=== PATIENT | male | born 1945 | race Caucasian/White ===

== ENCOUNTER 2016-05-24 20:40 | Emergency (ER) | payer MEDICARE, BC ==
[2016-05-24] MEDS ORDERED: Aspirin 81 MG Tab.Chew PO ONE (20:45)
[2016-05-24 20:53] VITALS: BP 146/63
[2016-05-24] MEDS ORDERED: Sodium Chloride 0.9% 10 ML Syringe FLUSH PRN (20:59)
--- NOTE | 2016-05-24 21:18 | EDM.PDOC ---
ED HISTORY OF PRESENT ILLNESS - General Chief Complaint: Chest Pain Stated Complaint: CHEST PAIN Time Seen by Provider: 05/24/16 20:50 Source: Reports: Patient, Family History Limitations: Reports: No limitations - History of Present Illness INITIAL COMMENTS - FREE TEXT/NARRATIVE: 70 years old w m with a history of cva came to the ed with his due to c/p while taking a deep breath. Pt received ASA 325 mg on arrival after which the chest pain subsided entirely. Pt has some shoulder pain, intermittent/chronic. 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: Acetaminophen - Related Data Allergies/ADRs: Allergies Allergy/AdvReac Type Severity Reaction Status Date / Time allopurinol Allergy Mild Rash Verified 05/24/16 20:50 hydrocodone Allergy Itching Verified 05/24/16 20:50 Home Meds: Home Meds Clopidogrel [Plavix] 75 mg PO DAILY 05/09/14 [History] Diltiazem HCl [Cardizem] 120 mg PO BID 05/09/14 [History] Gemfibrozil [Lopid] 600 mg PO BID 05/09/14 [History] Metoprolol Tartrate [Lopressor] 25 mg PO BID 05/09/14 [History] Simvastatin [Zocor] 20 mg PO BEDTIME 05/09/14 [History] amLODIPine [Norvasc] 10 mg PO DAILY 05/09/14 [History] Losartan [Cozaar] 50 mg PO DAILY 11/04/15 [History] Multivitamin [Multi-Vitamin Daily] 1 each PO DAILY 11/04/15 [History] Past Medical History - Past Health History Medical/Surgical History: Denies Medical/Surgical History HEENT History: Reports: Cataract, Impaired vision Cardiovascular History: Reports: Blood clots/VTE/DVT, High cholesterol, Hypertension Gastrointestinal History: Reports: Hemorrhoids Genitourinary History: Reports: Other (see below) Other Genitourinary History: NOCTURIA Musculoskeletal History: Reports: Fracture, Gout Neurological History: Reports: CVA, TIA Endocrine/Metabolic History: Reports: Diabetes, type II - Past Surgical History HEENT Surgical History: Reports: Cataract surgery Musculoskeletal Surgical History: Reports: ORIF Social & Family History - Family History Family Medical History: Noncontributory - Tobacco Use Smoking Status *Q: Former Smoker Used Tobacco, but Quit: Yes Month Tobacco Last Used: 30 YEARS AGO Second Hand Smoke Exposure: No - Caffeine Use Caffeine Use: Reports: Coffee - Alcohol Use Days Per Week of Alcohol Use: 7 Number of Drinks Per Day: 2 Total Drinks Per Week: 14 - Recreational Drug Use Recreational Drug Use: No ED ROS GENERAL - Review of Systems Review Of Systems: See Below Constitutional: Reports: no symptoms HEENT: Reports: No symptoms Respiratory: Reports: Shortness of Breath (with deep inspiration, subsided) Cardiovascular: Reports: Chest pain (with deep inspiration) Endocrine: Reports: no symptoms GI/Abdominal: Reports: No symptoms : Reports: no symptoms Musculoskeletal: Reports: no symptoms Skin: Reports: no symptoms Neurological: Reports: No Symptoms Psychiatric: Reports: No symptoms Hematologic/Lymphatic: Reports: no symptoms Immunologic: Reports: no symptoms ED EXAM, GENERAL - Physical Exam Exam: See Below Exam Limited By: No limitations General Appearance: alert, WD/WN, no apparent distress Eye Exam: bilateral eye: normal inspection Ears: normal external exam Ear Exam: bilateral ear: auricle normal Nose: normal inspection, normal mucosa, no blood Throat/Mouth: Normal inspection, Normal lips Head: atraumatic, normocephalic Neck: normal inspection, supple, non-tender, full range of motion Respiratory/Chest: no respiratory distress, lungs clear, normal breath sounds Cardiovascular: normal peripheral pulses, regular rate, rhythm, no edema, no gallop Peripheral Pulses: 3+: femoral (L), femoral (R) GI/Abdominal: normal bowel sounds, soft, non tender, no organomegaly (Male) Exam: Deferred Rectal (Males) Exam: Deferred Back Exam: normal inspection, full range of motion Extremities: normal inspection, normal range of motion, non-tender, no pedal edema Neurological: alert, oriented, CN II-XII intact, normal cognition, normal gait Psychiatric: normal affect, normal mood Skin Exam: Warm, Dry, Intact, Normal color, No rash Lymphatic: no adenopathy EKG INTERPRETATION EKG Date: 05/24/16 Time: 20:45 Rhythm: NSR Rate (beats/min): 106 [place]: normal P-wave: present QRS: normal ST-T: normal QT: normal Comparison: NA - no prior EKG Course - Vital Signs Text/Narrative:: 70 years old w m with a history of cva came to the ed with his due to c/p while taking a deep breath. Pt received ASA 325 mg on arrival after which the chest pain subsided entirely. Pt has some shoulder pain, intermittent/chronic. No N/V/D or dizziness or other medical issues PE: WNWD w m no discomfort, CP subsided. was in his usual state of health. Labs: Troponin Nl ECG: NSR, please see note above. Imaging: CXR NAD Impression: Atypical chest pain. Tx: ASA, Protonix Reexam: pt remained chest pain free while here in the ed Plan: D/C with instructions Last Recorded V/S: Last Vital Signs Temp 37.0 C 05/24/16 20:50 Pulse 104 H 05/24/16 20:50 Resp 26 H 05/24/16 20:50 BP 146/63 H 05/24/16 20:50 Pulse Ox 97 05/24/16 20:50 - Orders/Labs/Meds Orders: Active Orders 24 hr Category Date Time Status EKG Documentation Completion [RC] ASDIRECTED Care 05/24/16 21:00 Active CXR [Chest 1V Frontal] [CR] Stat Exams 05/24/16 20:50 Taken Sodium Chloride 0.9% [Saline Flush] Med 05/24/16 20:59 Active 10 ml FLUSH ASDIRECTED PRN Saline Lock Insert [OM.PC] Routine Oth 05/24/16 20:59 Ordered EKG 12 Lead [EK] Routine Ther 05/24/16 20:45 Ordered Medication Orders Sodium Chloride (Saline Flush) 10 ml FLUSH ASDIRECTED PRN PRN Reason: Keep Vein Open Last Admin: 05/24/16 21:01 Dose: 10 ml Labs: Laboratory Tests 05/24/16 05/24/16 05/24/16 Range/Units 21:05 21:05 21:05 WBC 12.6 H (4.5-12.0) X10-3/uL RBC 4.59 (4.30-5.75) x10(6)uL Hgb 13.8 (11.5-15.5) g/dL Hct 40.6 (30.0-51.3) % MCV 88.5 (80-96) fL MCH 30.1 (27.7-33.6) pg MCHC 34.0 (32.2-35.4) g/dL RDW 12.4 (11.5-15.5) % Plt Count 258 (125-369) X10(3)uL MPV 8.3 (7.4-10.4) fL Neut % (Auto) 72.6 (46-82) % Lymph % (Auto) 16.6 (13-37) % [place] % (Auto) 7.2 (4-12) % Eos % (Auto) 3 (1.0-5.0) % Baso % (Auto) 1 (0-2) % Neut # (Auto) 9.1 H (1.6-8.3) # Lymph # (Auto) 2.1 (0.6-5.0) # [place] # (Auto) 0.9 (0.0-1.3) # Eos # (Auto) 0.4 (0.0-0.8) # Baso # (Auto) 0.1 (0.0-0.2) # PT 11.0 (8.7-11.1) INR 1.09 (0.89-1.13) Sodium 138 (135-145) mmol/L Potassium 3.7 (3.5-5.3) mmol/L Chloride 109 (100-110) mmol/L Carbon Dioxide 18 L (23-29) mmol/L BUN 19 (8-23) mg/dL Creatinine 1.2 (0.6-1.3) mg/dL Est Cr Clr Drug Dosing 55.64 mL/min Estimated GFR (MDRD) 60 (>60) BUN/Creatinine Ratio 15.8 (9-20) Glucose 128 H (80-116) mg/dL Calcium 9.4 (8.6-10.2) mg/dL Troponin I (0.02-0.06) NG/ML 05/24/16 Range/Units 21:05 WBC (4.5-12.0) X10-3/uL RBC (4.30-5.75) x10(6)uL Hgb (11.5-15.5) g/dL Hct (30.0-51.3) % MCV (80-96) fL MCH (27.7-33.6) pg MCHC (32.2-35.4) g/dL RDW (11.5-15.5) % Plt Count (125-369) X10(3)uL MPV (7.4-10.4) fL Neut % (Auto) (46-82) % Lymph % (Auto) (13-37) % [place] % (Auto) (4-12) % Eos % (Auto) (1.0-5.0) % Baso % (Auto) (0-2) % Neut # (Auto) (1.6-8.3) # Lymph # (Auto) (0.6-5.0) # [place] # (Auto) (0.0-1.3) # Eos # (Auto) (0.0-0.8) # Baso # (Auto) (0.0-0.2) # PT (8.7-11.1) INR (0.89-1.13) Sodium (135-145) mmol/L Potassium (3.5-5.3) mmol/L Chloride (100-110) mmol/L Carbon Dioxide (23-29) mmol/L BUN (8-23) mg/dL Creatinine (0.6-1.3) mg/dL Est Cr Clr Drug Dosing mL/min Estimated GFR (MDRD) (>60) BUN/Creatinine Ratio (9-20) Glucose (80-116) mg/dL Calcium (8.6-10.2) mg/dL Troponin I < 0.01 L (0.02-0.06) NG/ML Meds: Medications Generic Name Dose Route Start Last Admin Trade Name Freq PRN Reason Stop Dose Admin Sodium Chloride 10 ml 05/24/16 20:59 05/24/16 21:01 Saline Flush FLUSH 10 ml ASDIRECTED PRN Administration Keep Vein Open Discontinued Medications Generic Name Dose Route Start Last Admin Trade Name Freq PRN Reason Stop Dose Admin Aspirin 324 mg 05/24/16 20:45 05/24/16 20:46 Aspirin PO 05/24/16 20:46 324 mg ONETIME ONE Administration Pantoprazole Sodium 40 mg 05/24/16 21:31 05/24/16 22:02 Protonix PO 05/24/16 21:32 40 mg 0600 STA Administration Departure - Departure Time of Disposition: 22:12 Disposition: Home, Self-Care 01 Condition: good Clinical Impression: Atypical chest pain Instructions: Nonspecific Chest Pain Referrals: Brina Andino, MARKETING ANALYTICS ANALYST [Primary Care Provider] - Forms: ED Department Discharge Additional Instructions: Please continue your meds as recommended, please follow up with your PMD, please come back to the ed if your symptoms get worse acutely. - My Orders Last 24 Hours: My Active Orders 05/24/16 20:45 EKG 12 Lead [EK] Routine 05/24/16 20:50 CXR [Chest 1V Frontal] [CR] Stat 05/24/16 20:59 Sodium Chloride 0.9% [Saline Flush] 10 ml FLUSH ASDIRECTED PRN Saline Lock Insert [OM.PC] Routine 05/24/16 21:00 EKG Documentation Completion [RC] ASDIRECTED - Assessment/Plan Last 24 Hours: My Active Orders 05/24/16 20:45 EKG 12 Lead [EK] Routine 05/24/16 20:50 CXR [Chest 1V Frontal] [CR] Stat 05/24/16 20:59 Sodium Chloride 0.9% [Saline Flush] 10 ml FLUSH ASDIRECTED PRN Saline Lock Insert [OM.PC] Routine 05/24/16 21:00 EKG Documentation Completion [RC] ASDIRECTED
[2016-05-24] MEDS ORDERED: Pantoprazole 40 MG Tab.CR PO STA (21:31)
--- NOTE | 2016-05-25 11:00 | CR ---
INDICATION: Chest pain. CHEST: An AP upright portable view of the chest was obtained. No comparisons were available. The heart did not appear enlarged, allowing for the AP portable examination. The aorta is tortuous with calcification in the arch. Overlying EKG leads are noted. The lungs appear to be hyperaerated with slightly flattened diaphragm leaves and minimal interdigitation of the right hemidiaphragm leaves, suggesting COPD. A definite active infiltrate or effusion was not identified. IMPRESSION: 1. No acute process. 2. ASD aorta. 3. Probable COPD. MTDD
== END 2016-05-24 22:22 | disposition home or self-care (01) ==
LOC: FB.ED 20:40
DX: R07.89 Other chest pain (principal); E78.00 Pure hypercholesterolemia, unspecified; I10 Essential (primary) hypertension; E11.9 Type 2 diabetes mellitus without complications; Z98.49 Cataract extraction status, unspecified eye; Z87.891 Personal history of nicotine dependence; Z88.8 Allergy status to other drugs, medicaments and biological substances; Z88.5 Allergy status to narcotic agent; Z79.899 Other long term (current) drug therapy
CPT/HCPCS: 36415; 71010; 80048; 84484; 85025; 85610; 93005; 96374; 99285; A9270; J7050; 99284

== ENCOUNTER 2017-03-01 12:47 | Emergency (ER) | payer MEDICARE, BC ==
[2017-03-01] MEDS ORDERED: Ketorolac 30 MG/ML SDV IM ONE (13:24)
[2017-03-01] MEDS ORDERED: Sodium Chloride 0.9% 1,000 ML IV SCH (14:00)
[2017-03-01] MEDS ORDERED: Morphine 2 MG/ML Syringe IVPUSH ONE (14:03)
--- NOTE | 2017-03-01 14:03 | EDM.PDOC ---
ED HPI GENERAL MEDICAL PROBLEM - General Chief Complaint: Lower Extremity Injury/Pain Stated Complaint: FALL Time Seen by Provider: 03/01/17 12:59 Source of Information: Reports: Patient, Family History Limitations: Reports: Physical Impairment - History of Present Illness INITIAL COMMENTS - FREE TEXT/NARRATIVE: 71 y.o.w.m s/p r hip Fx, H/O HTN, came to the ed after he fell this am and has pain at his left hip with movement of his left hip. He denied any other injuries. No N/V/D or dizziness. BP 114/47 pulse 50 RR 16 Pulse ox 98% on RA Onset: Today Onset Date: 03/01/17 Onset Time: 10:00 Duration: Hour(s): Location: Reports: Upper Extremity, Left Quality: Reports: Ache, Burning, Dull, Stabbing, Throbbing Severity: Moderate (with movement) Improves with: Reports: Rest Worsens with: Reports: Movement (left hip) Associated Symptoms: Reports: No Other Symptoms Left Hip Pain Score (Numeric/FACES): 7 - Related Data Allergies Allergy/AdvReac Type Severity Reaction Status Date / Time allopurinol Allergy Mild Rash Verified 05/24/16 20:50 hydrocodone Allergy Itching Verified 05/24/16 20:50 Home Meds: Home Meds Clopidogrel [Plavix] 75 mg PO DAILY 05/09/14 [History] Diltiazem HCl [Cardizem] 120 mg PO BID 05/09/14 [History] Gemfibrozil [Lopid] 600 mg PO BID 05/09/14 [History] Metoprolol Tartrate [Lopressor] 25 mg PO BID 05/09/14 [History] Simvastatin [Zocor] 20 mg PO BEDTIME 05/09/14 [History] amLODIPine [Norvasc] 10 mg PO DAILY 05/09/14 [History] Losartan [Cozaar] 50 mg PO DAILY 11/04/15 [History] Multivitamin [Multi-Vitamin Daily] 1 each PO DAILY 11/04/15 [History] Past Medical History - Past Health History Medical/Surgical History: Denies Medical/Surgical History HEENT History: Reports: Cataract, Impaired Vision Cardiovascular History: Reports: Blood Clots/VTE/DVT, High Cholesterol, Hypertension Gastrointestinal History: Reports: Hemorrhoids Genitourinary History: Reports: Other (See Below) Other Genitourinary History: NOCTURIA Musculoskeletal History: Reports: Fracture, Gout Neurological History: Reports: CVA, TIA Endocrine/Metabolic History: Reports: Diabetes, Type II - Past Surgical History HEENT Surgical History: Reports: Cataract Surgery GI Surgical History: Reports: Colonoscopy, Hernia, Inguinal Musculoskeletal Surgical History: Reports: ORIF Other Musculoskeletal Surgeries/Procedures:: Pt family states that he broke his hip and had pins put in about 25 years ago. Social & Family History - Family History Family Medical History: Noncontributory - Tobacco Use Smoking Status *Q: Former Smoker Used Tobacco, but Quit: Yes Month Tobacco Last Used: 02/27/1979 Second Hand Smoke Exposure: No - Caffeine Use Caffeine Use: Reports: Coffee - Alcohol Use Days Per Week of Alcohol Use: 7 Number of Drinks Per Day: 2 Total Drinks Per Week: 14 - Recreational Drug Use Recreational Drug Use: No Review of Systems - Review of Systems Review Of Systems: See Below Constitutional: Reports: No Symptoms Eyes: Reports: No Symptoms Ears: Reports: No Symptoms Nose: Reports: No Symptoms Mouth/Throat: Reports: No Symptoms Respiratory: Reports: No Symptoms Cardiovascular: Reports: No Symptoms GI/Abdominal: Reports: No Symptoms Genitourinary: Reports: No Symptoms Musculoskeletal: Reports: Joint Pain (left hip) Skin: Reports: No Symptoms Neurological: Reports: No Symptoms Psychiatric: Reports: No Symptoms ED EXAM, GENERAL - Physical Exam Exam: See Below Exam Limited By: Physical Impairment (left hip pain) General Appearance: Alert, WD/WN, Mild Distress Eye Exam: Bilateral Eye: Normal Inspection Ears: Normal External Exam Ear Exam: Bilateral Ear: Auricle Normal Nose: Normal Inspection, Normal Mucosa Throat/Mouth: Normal Inspection, Normal Lips Head: Atraumatic, Normocephalic Neck: Normal Inspection Respiratory/Chest: No Respiratory Distress, Lungs Clear, Normal Breath Sounds Cardiovascular: Normal Peripheral Pulses, Regular Rate, Rhythm, No Edema Peripheral Pulses: 1+: Radial (L) GI/Abdominal: Normal Bowel Sounds, Soft, Non-Tender, No Organomegaly (Male) Exam: Deferred Rectal (Males) Exam: Deferred Back Exam: Normal Inspection, Full Range of Motion Extremities: Limited Range of Motion (left hip fx) Neurological: Alert, Oriented, CN II-XII Intact, Normal Cognition, Abnormal Gait (left hip frx) Psychiatric: Normal Affect, Normal Mood Skin Exam: Warm, Dry, Intact, Normal Color, No Rash Lymphatic: No Adenopathy Course - Vital Signs Text/Narrative:: 71 y.o.w.m s/p r hip Fx, H/O HTN, came to the ed after he fell this am and has pain at his left hip with movement of his left hip. He denied any other injuries. No N/V/D or dizziness. BP 114/47 pulse 50 RR 16 Pulse ox 98% on RA Pt is not on ASA, last food intake 9 am today PE: left hip short and introverted Labs: Pending Imaging: Left intertrochanteric, comminuted hip frx Impression: Closed left intertrochanteric, comminuted hip frx Tx: ICE, I.V, Toradol, MS, Zofran Reexam: Improved 1.56 pm Consultation: Dr Gonzalez, Ortho [facility]: Excepted the pt for transfer and further care Plan: Transfer to [facility], Ortho Last Recorded V/S: Last Vital Signs Temp 36.4 C 03/01/17 15:18 Pulse 61 03/01/17 15:18 Resp 13 03/01/17 15:18 BP 138/66 03/01/17 15:18 Pulse Ox 97 03/01/17 15:18 - Orders/Labs/Meds Labs: Laboratory Tests 03/01/17 03/01/17 03/01/17 Range/Units 14:15 14:15 14:15 WBC 11.3 (4.5-12.0) X10-3/uL RBC 4.27 L (4.30-5.75) x10(6)uL Hgb 13.3 (11.5-15.5) g/dL Hct 38.4 (30.0-51.3) % MCV 89.9 (80-96) fL MCH 31.2 (27.7-33.6) pg MCHC 34.7 (32.2-35.4) g/dL RDW 12.1 (11.5-15.5) % Plt Count 231 (125-369) X10(3)uL PT 11.2 H (8.7-11.1) INR 1.11 (0.89-1.13) Sodium 141 (135-145) mmol/L Potassium 4.3 (3.5-5.3) mmol/L Chloride 107 (100-110) mmol/L Carbon Dioxide 20 L (21-32) mmol/L BUN 26 H (7-18) mg/dL Creatinine 1.5 H (0.70-1.30) mg/dL Est Cr Clr Drug Dosing 41.01 mL/min Estimated GFR (MDRD) 46 L (>60) BUN/Creatinine Ratio 17.3 (9-20) Glucose 151 H (80-116) mg/dL Calcium 9.6 (8.6-10.2) mg/dL NT-Pro-B Natriuret Pep (<=125) pg/mL 03/01/17 Range/Units 14:15 WBC (4.5-12.0) X10-3/uL RBC (4.30-5.75) x10(6)uL Hgb (11.5-15.5) g/dL Hct (30.0-51.3) % MCV (80-96) fL MCH (27.7-33.6) pg MCHC (32.2-35.4) g/dL RDW (11.5-15.5) % Plt Count (125-369) X10(3)uL PT (8.7-11.1) INR (0.89-1.13) Sodium (135-145) mmol/L Potassium (3.5-5.3) mmol/L Chloride (100-110) mmol/L Carbon Dioxide (21-32) mmol/L BUN (7-18) mg/dL Creatinine (0.70-1.30) mg/dL Est Cr Clr Drug Dosing mL/min Estimated GFR (MDRD) (>60) BUN/Creatinine Ratio (9-20) Glucose (80-116) mg/dL Calcium (8.6-10.2) mg/dL NT-Pro-B Natriuret Pep 306 H (<=125) pg/mL Meds: Medications Discontinued Medications Generic Name Dose Route Start Last Admin Trade Name Freq PRN Reason Stop Dose Admin Sodium Chloride 1,000 mls @ 125 mls/hr 03/01/17 14:00 03/01/17 14:04 Normal Saline IV 125 mls/hr ASDIRECTED FRANCESCO Administration Sodium Chloride 500 mls @ 999 mls/hr 03/01/17 14:25 03/01/17 14:25 Normal Saline IV 999 mls/hr ASDIRECTED FRANCESCO Administration Ketorolac Tromethamine 30 mg 03/01/17 13:24 03/01/17 13:30 Toradol IM 03/01/17 13:25 30 mg ONETIME ONE Administration Morphine Sulfate 1 mg 03/01/17 14:03 03/01/17 14:15 Morphine IVPUSH 03/01/17 14:04 1 mg ONETIME ONE Administration Ondansetron HCl 4 mg 03/01/17 14:04 03/01/17 14:15 Zofran IVPUSH 03/01/17 14:05 4 mg ONETIME ONE Administration Departure - Departure Time of Disposition: 12:00 Disposition: DC/Tfer to Acute Hospital 02 Condition: Fair Clinical Impression: Hip fracture Qualifiers: Encounter type: initial encounter Fracture type: closed Laterality: left Qualified Code(s): S72.002A - Fracture of unspecified part of neck of left femur , initial encounter for closed fracture - Discharge Information Referrals: Brina Andino, PHARMACIST AIDE [Primary Care Provider] - Forms: ED Department Discharge
[2017-03-01] MEDS ORDERED: Ondansetron 4 MG/2 ML SDV IVPUSH ONE (14:04)
[2017-03-01] MEDS ORDERED: Sodium Chloride 0.9% 500 ML IV SCH (14:25)
--- NOTE | 2017-03-01 15:18 | CR ---
INDICATION: Trauma, fell, left lateral pain. LEFT HIP: AP and lateral views of the left hip revealed an intertrochanteric comminuted fracture of the left femur with lateral angulation at the fracture site. Mild degenerative changes are noted at the hip joint with the joint space only minimally narrowed cranial laterally. Bony structures appear to be slightly diminished in density, raising question of osteoporosis. Incidentally noted were arterial calcifications. IMPRESSION: Intertrochanteric fracture with deformity. MTDD
[2017-03-01 15:19] VITALS: BP 138/66
== END 2017-03-01 15:30 ==
LOC: FB.ED 12:47
DX: S72.142A Displaced intertrochanteric fracture of left femur, initial encounter for closed fracture (principal); E11.9 Type 2 diabetes mellitus without complications; E78.00 Pure hypercholesterolemia, unspecified; I10 Essential (primary) hypertension; Z88.8 Allergy status to other drugs, medicaments and biological substances; Z88.5 Allergy status to narcotic agent; Z79.899 Other long term (current) drug therapy; Z87.891 Personal history of nicotine dependence; W19.XXXA Unspecified fall, initial encounter
CPT/HCPCS: 36415; 73502; 80048; 83880; 85027; 85610; 96361; 96372; 96374; 96375; 99284; J1885; J2270; J2405; J7040

== ENCOUNTER 2017-03-06 11:07 | Inpatient (IN) | payer MEDICARE, BC ==
--- NOTE | 2017-03-06 16:42 | PCM.HP ---
H&P History of Present Illness - General Date of Service: 03/06/17 Admit Problem/Dx: Admission Diagnosis/Problem Admission Diagnosis/Problem Weakness - History of Present Illness Initial Comments - Free Text/Narative: Patient is a 71-year-old male who is status post left hip fracture with ORIF at [facility] on 03/01/2017. Left hip pinning. Transferred here for physical therapy and occupational therapy regarding strengthening wound care and comorbidity management. with him in the room. No concerns at this time. Left Hip Pain Score (Numeric/FACES): 4 - Related Data Allergies/Adverse Reactions: Allergies Allergy/AdvReac Type Severity Reaction Status Date / Time allopurinol Allergy Mild Rash Verified 05/24/16 20:50 hydrocodone Allergy Itching Verified 05/24/16 20:50 Home Medications: Home Meds Clopidogrel [Plavix] 75 mg PO DAILY 05/09/14 [History] Diltiazem HCl [Cardizem] 120 mg PO BIDMEALS 05/09/14 [History] Gemfibrozil [Lopid] 600 mg PO BID 05/09/14 [History] Metoprolol Tartrate [Lopressor] 25 mg PO BID 05/09/14 [History] Simvastatin [Zocor] 20 mg PO BEDTIME 05/09/14 [History] amLODIPine [Norvasc] 10 mg PO DAILY 05/09/14 [History] Losartan [Cozaar] 50 mg PO DAILY 11/04/15 [History] Acetaminophen 650 mg PO Q4H PRN 03/06/17 [History] Cholestyramine/Sucrose [Cholestyramine Packet] 4 gm PO BIDMEALS 03/06/17 [ History] Enoxaparin [Lovenox] 40 mg SUBCUT DAILY 03/06/17 [History] Hydrocodone/Acetaminophen [Hydrocodon-Acetaminophn 10-325] 1 tab PO Q4H PRN 10/14 [History] L.acidoph,Paracasei, B.lactis [Probiotic] 1 each PO DAILY 03/06/17 [History] Lutein/Min/Vit C/Vit E Acetate [Ocuvite Lutein] 1 cap PO DAILY 03/06/17 [History ] Polyethylene Glycol 3350 [MiraLAX] 17 gm PO DAILY 03/06/17 [History] Sennosides/Docusate Sodium [Senokot-S Tablet] 2 each PO DAILY 03/06/17 [History] Tamsulosin [Tamsulosin 24 Hr] 0.4 mg PO DAILY 03/06/17 [History] Past Medical History HEENT History: Reports: Cataract, Impaired Vision Cardiovascular History: Reports: Blood Clots/VTE/DVT, High Cholesterol, Hypertension Gastrointestinal History: Reports: Hemorrhoids Genitourinary History: Reports: Other (See Below) Other Genitourinary History: NOCTURIA Musculoskeletal History: Reports: Fracture, Gout Neurological History: Reports: CVA, TIA Other Neuro History: on 11/06/2013 Endocrine/Metabolic History: Reports: Diabetes, Type II, Other (See Below) Other Endocrine/Metabolic History: about a year ago was taken off of his oral diabetic meds per his doctor Hematologic History: Reports: Other (See Below) Other Hematologic History: on blood thinners Immunologic History: Reports: None - Past Surgical History HEENT Surgical History: Reports: Cataract Surgery GI Surgical History: Reports: Colonoscopy, Hernia, Inguinal Musculoskeletal Surgical History: Reports: ORIF Other Musculoskeletal Surgeries/Procedures:: Pt family states that he broke his hip and had pins put in about 25 years ago. this was the right hip Social & Family History - Family History Family Medical History: Noncontributory - Tobacco Use Smoking Status *Q: Former Smoker Used Tobacco, but Quit: Yes Month Tobacco Last Used: 02/1989 Second Hand Smoke Exposure: No - Caffeine Use Caffeine Use: Reports: Coffee - Alcohol Use Days Per Week of Alcohol Use: 7 Number of Drinks Per Day: 2 Total Drinks Per Week: 14 Date of Last Drink: 02/21/17 Time of Last Drink: 21:00 - Recreational Drug Use Recreational Drug Use: No - Living Situation & Occupation Living situation: Reports: , with Spouse H&P Review of Systems - Review of Systems: Review Of Systems: ROS reveals no pertinent complaints other than HPI. Musculoskeletal: Reports: Joint Pain Skin: Reports: Wound Neurological: Reports: Difficulty Walking, Weakness Exam - Exam Exam: See Below - Vital Signs Weight: 92.533 kg - Exam General: Alert, Oriented, Cooperative HEENT: Conjunctiva Clear, Pupils Equal Neck: Supple Lungs: Wheezing (bilateral anterior upperlobes/expiratory) GI/Abdominal Exam: Normal Bowel Sounds, Soft, Non-Tender Back Exam: Normal Inspection Extremities: Other (Left hip with dry dressing over surgical incision. extensive ecchymosis surrounding the site in various stages of healing. incision extends from above greater trochanter to upper mid femur. minimal induraton, no increased warmth. no erythema. minimal tenderness. normal sensation and perfersion distally. able to flex hip up to roughly 30degrees and knee 30degrees per own strength. no periferral edema. ) Skin: Incision (see above) Neurological: Cranial Nerves Intact Neuro Extensive - Mental Status: Oriented x3, Normal Cognition Psychiatric: Normal Affect, Normal Mood (very pleasant and jovial mood with his and myself:-)) *Q Meaningful Use (ADM) - VTE *Q VTE Criteria *Q: - Stroke *Q Stroke Criteria *Q: - AMI *Q AMI Criteria *Q: - Problem List (1) Status post open reduction with internal fixation of fracture SNOMED Code(s): 948977708 ICD Code: Z96.7 - PRESENCE OF OTHER BONE AND TENDON IMPLANTS; Z87.81 - PERSONAL HISTORY OF (HEALED) TRAUMATIC FRACTURE Status: Acute Current Visit : Yes Onset Date: ~03/01/17 (2) Expiratory wheezing SNOMED Code(s): 1758348 ICD Code: R06.2 - WHEEZING Status: Acute Current Visit: Yes Problem List Initiated/Reviewed/Updated: Yes Orders Last 24hrs: Active Orders 24 hr Category Date Time Status Patient Status [ADT] Routine ADT 03/06/17 15:07 Active OT Evaluation and Treatment [CONS] Routine Cons 03/06/17 15:15 Active PT Evaluation and Treatment [CONS] Routine Cons 03/06/17 15:15 Active Regular Diet [DIET] Diet 03/06/17 Dinner Active Acetaminophen [Tylenol] Med 03/06/17 15:41 Active 650 mg PO Q4H PRN Acetaminophen/HYDROcodone [[place] 325-10 MG] Med 03/06/17 15:41 Active 1 tab PO Q4H PRN Cholestyramine/Sucrose [Cholestyramine Packet] Med 03/06/17 18:00 Active 4 gm PO BIDMEALS Clopidogrel [Plavix] Med 03/07/17 09:00 Active 75 mg PO DAILY Diltiazem IR [Cardizem] Med 03/06/17 18:00 Active 120 mg PO BIDMEALS Docusate Sodium/Sennosides [Senna Plus] Med 03/07/17 09:00 Active 2 tab PO DAILY Enoxaparin [Lovenox] Med 03/07/17 09:00 Active 40 mg SUBCUT DAILY Gemfibrozil [Lopid] Med 03/06/17 21:00 Active 600 mg PO BID Lactobacillus Rhamnosus GG [Culturelle] Med 03/07/17 09:00 Active 1 cap PO DAILY Losartan [Cozaar] Med 03/07/17 09:00 Active 50 mg PO DAILY Lutein/Min/Vit C/Vit E Acetate [Ocuvite Lutein] Med 03/07/17 09:00 Active 1 each PO DAILY Metoprolol Tartrate [Lopressor] Med 03/06/17 21:00 Active 25 mg PO BID Polyethylene Glycol 3350 [MiraLAX] Med 03/07/17 09:00 Active 17 gm PO DAILY Simvastatin [Zocor] Med 03/06/17 21:00 Active 20 mg PO BEDTIME Tamsulosin [Flomax] Med 03/07/17 09:00 Active 0.4 mg PO DAILY amLODIPine [Norvasc] Med 03/07/17 09:00 Active 10 mg PO DAILY Code Status [Resuscitation Status] Routine Resus Stat 03/06/17 15:44 Ordered Medication Orders Acetaminophen (Tylenol) 650 mg PO Q4H PRN PRN Reason: Pain (mild 1-3) Hydrocodone Bitart/Acetaminophen ([place] 325-10 Mg) 1 tab PO Q4H PRN PRN Reason: Pain Amlodipine Besylate (Norvasc) 10 mg PO DAILY [facility] Cholestyramine Resin (Cholestyramine Packet) 4 gm PO BIDMEALS [facility] Clopidogrel Bisulfate (Plavix) 75 mg PO DAILY [facility] Diltiazem HCl (Cardizem) 120 mg PO BIDMEALS [facility] Enoxaparin Sodium (Lovenox) 40 mg SUBCUT DAILY [facility] Stop: 03/31/17 09:01 Gemfibrozil (Lopid) 600 mg PO BID [facility] Lactobacillus Rhamnosus (Culturelle) 1 cap PO DAILY [facility] Losartan Potassium (Cozaar) 50 mg PO DAILY [facility] Metoprolol Tartrate (Lopressor) 25 mg PO BID [facility] Polyethylene Glycol (Miralax) 17 gm PO DAILY [facility] Senna/Docusate Sodium (Senna Plus) 2 tab PO DAILY [facility] Simvastatin (Zocor) 20 mg PO BEDTIME [facility] Tamsulosin HCl (Flomax) 0.4 mg PO DAILY [facility] Vit C/Vit E/Zinc/Copper/Lutein (Ocuvite Lutein) 1 each PO DAILY [facility] Assessment/Plan Comment:: Patient will be admitted to our swing bed where he is anticipated to progress quite well with the use of physical and occupational therapy for strengthening, mobility, ADLs and comorbidity management. will get an albuteral neb in and see if this reduces wheezing. he is not short of breath and no hx of asthma, but says he gets this from time to time. will retart IS as well to prevent any post op attelectasis.
[2017-03-06] MEDS ORDERED: Albuterol 0.083% 2.5 MG/3 ML Neb Soln NEB ONE (17:08)
[2017-03-06] MEDS: Acetaminophen/HYDROcodone 325-10 MG Tab PO PRN ×2 (17:16→21:17)
[2017-03-06] MEDS: Cholestyramine/Sucrose Powder 4 GM Packet PO SCH (17:18)
[2017-03-06] MEDS: Diltiazem IR 30 MG Tab PO SCH (17:44)
[2017-03-06] MEDS: Aluminum Hydroxide/Magnesium Hydroxide Susp 30 ML Cup PO PRN (20:47)
[2017-03-06] MEDS: Gemfibrozil 600 MG Tab PO SCH (21:16)
[2017-03-06] MEDS: Metoprolol Tartrate 25 MG Tab PO SCH (21:16)
[2017-03-06] MEDS: Simvastatin 20 MG Tab PO SCH (21:17)
[2017-03-07] MEDS: Acetaminophen/HYDROcodone 325-10 MG Tab PO PRN ×3 (05:33→18:57)
[2017-03-07] MEDS: Acetaminophen 325 MG Tab PO PRN ×2 (08:20→21:21)
[2017-03-07] MEDS: Cholestyramine/Sucrose Powder 4 GM Packet PO SCH ×2 (08:23→08:52)
[2017-03-07] MEDS: Polyethylene Glycol 3350 Powder 17 GM Packet PO SCH (08:25)
[2017-03-07] MEDS: Enoxaparin 40 MG/0.4 ML Syringe SUBCUT SCH (08:25)
[2017-03-07] MEDS: Lactobacillus Rhamnosus GG (Probiotic) Cap PO SCH (08:27)
[2017-03-07] MEDS: Clopidogrel 75 MG Tab PO SCH (08:27)
[2017-03-07] MEDS: Tamsulosin 0.4 MG Cap.ER PO SCH (08:27)
[2017-03-07] MEDS: Gemfibrozil 600 MG Tab PO SCH ×2 (08:27→20:01)
[2017-03-07] MEDS: Lutein/Minerals/Vitamin C/Vitamin E Acetate Cap PO SCH (08:28)
[2017-03-07] MEDS: Multivitamin Tab PO SCH (08:34)
[2017-03-07] MEDS: Ascorbic Acid 500 MG Tab PO SCH (08:34)
[2017-03-07] MEDS: Metoprolol Tartrate 25 MG Tab PO SCH ×2 (08:51→20:02)
[2017-03-07] MEDS: Losartan 50 MG Tab PO SCH (08:51)
[2017-03-07] MEDS: amLODIPine 10 MG Tab PO SCH (08:51)
[2017-03-07] MEDS: Diltiazem IR 30 MG Tab PO SCH (08:51)
[2017-03-07] MEDS: Zinc Sulfate 220 MG Cap PO SCH (10:52)
[2017-03-07] MEDS: Calcium Carbonate/Vitamin D3 1250 MG-200 Unit Tab PO SCH ×2 (14:25→19:59)
[2017-03-07] MEDS: Diltiazem IR 60 MG Tab PO SCH (18:18)
[2017-03-07] MEDS: Simvastatin 20 MG Tab PO SCH (20:03)
[2017-03-08] MEDS: Acetaminophen/HYDROcodone 325-10 MG Tab PO PRN ×4 (00:08→20:11)
[2017-03-08] MEDS: Calcium Carbonate/Vitamin D3 1250 MG-200 Unit Tab PO SCH ×3 (08:44→20:07)
[2017-03-08] MEDS: Diltiazem IR 60 MG Tab PO SCH ×2 (08:44→17:55)
[2017-03-08] MEDS: Metoprolol Tartrate 25 MG Tab PO SCH ×2 (08:45→20:09)
[2017-03-08] MEDS: Losartan 50 MG Tab PO SCH (08:45)
[2017-03-08] MEDS: Lactobacillus Rhamnosus GG (Probiotic) Cap PO SCH (08:45)
[2017-03-08] MEDS: Ascorbic Acid 500 MG Tab PO SCH (08:45)
[2017-03-08] MEDS: Tamsulosin 0.4 MG Cap.ER PO SCH (08:46)
[2017-03-08] MEDS: Enoxaparin 40 MG/0.4 ML Syringe SUBCUT SCH (08:46)
[2017-03-08] MEDS: amLODIPine 10 MG Tab PO SCH (08:46)
[2017-03-08] MEDS: Gemfibrozil 600 MG Tab PO SCH ×2 (08:46→20:08)
[2017-03-08] MEDS: Zinc Sulfate 220 MG Cap PO SCH (08:47)
[2017-03-08] MEDS: Lutein/Minerals/Vitamin C/Vitamin E Acetate Cap PO SCH (08:47)
[2017-03-08] MEDS: Polyethylene Glycol 3350 Powder 17 GM Packet PO SCH (08:47)
[2017-03-08] MEDS: Clopidogrel 75 MG Tab PO SCH (08:47)
[2017-03-08] MEDS: Multivitamin Tab PO SCH (08:47)
[2017-03-08] MEDS: Acetaminophen 325 MG Tab PO PRN (08:57)
[2017-03-08] MEDS: Aluminum Hydroxide/Magnesium Hydroxide Susp 30 ML Cup PO PRN (08:57)
[2017-03-08] MEDS: Simvastatin 20 MG Tab PO SCH (20:10)
[2017-03-09] MEDS: Diltiazem IR 60 MG Tab PO SCH ×2 (07:54→18:00)
[2017-03-09] MEDS: Acetaminophen/HYDROcodone 325-10 MG Tab PO PRN ×3 (08:05→22:00)
[2017-03-09] MEDS: Calcium Carbonate/Vitamin D3 1250 MG-200 Unit Tab PO SCH ×3 (09:13→21:06)
[2017-03-09] MEDS: Losartan 50 MG Tab PO SCH (09:13)
[2017-03-09] MEDS: Tamsulosin 0.4 MG Cap.ER PO SCH (09:14)
[2017-03-09] MEDS: Lactobacillus Rhamnosus GG (Probiotic) Cap PO SCH (09:14)
[2017-03-09] MEDS: Gemfibrozil 600 MG Tab PO SCH ×2 (09:14→21:06)
[2017-03-09] MEDS: Polyethylene Glycol 3350 Powder 17 GM Packet PO SCH (09:15)
[2017-03-09] MEDS: Enoxaparin 40 MG/0.4 ML Syringe SUBCUT SCH (09:15)
[2017-03-09] MEDS: Metoprolol Tartrate 25 MG Tab PO SCH ×2 (09:15→21:06)
[2017-03-09] MEDS: Lutein/Minerals/Vitamin C/Vitamin E Acetate Cap PO SCH (09:16)
[2017-03-09] MEDS: Clopidogrel 75 MG Tab PO SCH (09:16)
[2017-03-09] MEDS: amLODIPine 10 MG Tab PO SCH (09:16)
[2017-03-09] MEDS: Ascorbic Acid 500 MG Tab PO SCH (09:17)
[2017-03-09] MEDS: Zinc Sulfate 220 MG Cap PO SCH (09:17)
[2017-03-09] MEDS: Multivitamin Tab PO SCH (09:17)
[2017-03-09] MEDS ORDERED: Tamsulosin 0.4 MG Cap.ER PO ONE (09:45)
[2017-03-09] MEDS: Simvastatin 20 MG Tab PO SCH (21:07)
[2017-03-10] MEDS: Acetaminophen/HYDROcodone 325-10 MG Tab PO PRN ×2 (07:10→15:53)
[2017-03-10] MEDS: Diltiazem IR 60 MG Tab PO SCH ×2 (08:09→17:41)
[2017-03-10] MEDS: Calcium Carbonate/Vitamin D3 1250 MG-200 Unit Tab PO SCH ×3 (08:09→20:33)
[2017-03-10] MEDS: Losartan 50 MG Tab PO SCH (08:10)
[2017-03-10] MEDS: Metoprolol Tartrate 25 MG Tab PO SCH ×2 (08:10→20:33)
[2017-03-10] MEDS: Clopidogrel 75 MG Tab PO SCH (08:10)
[2017-03-10] MEDS: amLODIPine 10 MG Tab PO SCH (08:11)
[2017-03-10] MEDS: Zinc Sulfate 220 MG Cap PO SCH (08:11)
[2017-03-10] MEDS: Gemfibrozil 600 MG Tab PO SCH ×2 (08:11→20:33)
[2017-03-10] MEDS: Multivitamin Tab PO SCH (08:11)
[2017-03-10] MEDS: Ascorbic Acid 500 MG Tab PO SCH (08:12)
[2017-03-10] MEDS: Lactobacillus Rhamnosus GG (Probiotic) Cap PO SCH (08:12)
[2017-03-10] MEDS: Tamsulosin 0.4 MG Cap.ER PO SCH (08:12)
[2017-03-10] MEDS: Lutein/Minerals/Vitamin C/Vitamin E Acetate Cap PO SCH (08:12)
[2017-03-10] MEDS: Enoxaparin 40 MG/0.4 ML Syringe SUBCUT SCH (08:14)
[2017-03-10] MEDS: Polyethylene Glycol 3350 Powder 17 GM Packet PO SCH (08:14)
--- NOTE | 2017-03-10 15:38 | PCM.PN ---
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 He landed on his left hip and fractured the femur. He had surgical repair done on the third and was discharged to swing bed status on the eighth. He is currently on swing bed day # 5. His primary care provider is Mariangel Dickens at [facility]. He feels things are going well here. Pain is well controlled. He's been doing physical therapy and occupational therapy well. The biggest concern is acute urinary retention. Currently bladder scanning and straight catheterizing. He has had problems with this once in the past after surgery as well. He was also noted to have some wheezing when he came from [place] and had been given a nebulizer which resolved his wheezing and he has had none since. No history of underlying lung disease. UA done was negative for infection. Straight catheterization has been necessary once or twice a day. We're straight cathetering for bladder postvoid residuals greater than 300 every 8 hours. Social history: The patient is an ex-smoker in 1989. Has a drink a day at home. He is and his is here with him. Past medical history: #1 history of CVA for which the patient takes Plavix. #2 hyperlipidemia. #3 hypertension well controlled. #4 history of BPH on Flomax which has been increased since he's been here. #5 diabetes mellitus type 2 in remission with diet control alone. - Patient Data Vitals - Most Recent: Last Vital Signs Temp 36.4 C 03/10/17 07:30 Pulse 85 03/10/17 08:10 Resp 20 03/10/17 07:30 BP 132/69 03/10/17 08:11 Pulse Ox 96 03/10/17 07:30 Weight - Most Recent: 92.533 kg I&O - Last 24 Hours: Intake & Output 03/10/17 03/10/17 03/10/17 06:59 14:59 22:59 Output Total 650 350 Balance -650 -350 Lab Results Last 24 Hours: Laboratory Results - last 24 hr 03/10/17 Range/Units 06:30 Plt Count 348 (125-369) X10(3)uL Med Orders - Current: Current Medications Acetaminophen (Tylenol) 650 mg PO Q4H PRN PRN Reason: Pain (mild 1-3) Last Admin: 03/08/17 08:57 Dose: 650 mg Hydrocodone Bitart/Acetaminophen ([place] 325-10 Mg) 1 tab PO Q4H PRN PRN Reason: Pain Last Admin: 03/10/17 07:10 Dose: 1 tab Al Hydroxide/Mg Hydroxide (Mag-Al Susp) 30 ml PO Q4H PRN PRN Reason: Heartburn Last Admin: 03/08/17 08:57 Dose: 30 ml Amlodipine Besylate (Norvasc) 10 mg PO DAILY [facility] Last Admin: 03/10/17 08:11 Dose: 10 mg Ascorbic Acid (Vitamin C) 1,000 mg PO DAILY [facility] Last Admin: 03/10/17 08:12 Dose: 1,000 mg Calcium Carbonate (Calcium Carbonate/Vitamin D 1250 Mg-200 Unit) 1 tab PO TID [facility] Last Admin: 03/10/17 13:49 Dose: 1 tab Clopidogrel Bisulfate (Plavix) 75 mg PO DAILY [facility] Last Admin: 03/10/17 08:10 Dose: 75 mg Diltiazem HCl (Cardizem) 120 mg PO BIDMEALS [facility] Last Admin: 03/10/17 08:09 Dose: 120 mg Enoxaparin Sodium (Lovenox) 40 mg SUBCUT DAILY [facility] Stop: 03/31/17 09:01 Last Admin: 03/10/17 08:14 Dose: 40 mg Gemfibrozil (Lopid) 600 mg PO BID [facility] Last Admin: 03/10/17 08:11 Dose: 600 mg Lactobacillus Rhamnosus (Culturelle) 1 cap PO DAILY [facility] Last Admin: 03/10/17 08:12 Dose: 1 cap Losartan Potassium (Cozaar) 50 mg PO DAILY [facility] Last Admin: 03/10/17 08:10 Dose: 50 mg Metoprolol Tartrate (Lopressor) 25 mg PO BID [facility] Last Admin: 03/10/17 08:10 Dose: 25 mg Multivitamins/Minerals/Vitamin C (Tab-A-Brady) 1 tab PO DAILY [facility] Last Admin: 03/10/17 08:11 Dose: 1 tab Polyethylene Glycol (Miralax) 17 gm PO DAILY [facility] Last Admin: 03/10/17 08:14 Dose: 17 gm Senna/Docusate Sodium (Senna Plus) 2 tab PO DAILY [facility] Last Admin: 03/10/17 08:11 Dose: 2 tab Simvastatin (Zocor) 20 mg PO BEDTIME [facility] Last Admin: 03/09/17 21:07 Dose: 20 mg Tamsulosin HCl (Flomax) 0.8 mg PO DAILY [facility] Last Admin: 03/10/17 08:12 Dose: 0.8 mg Vit C/Vit E/Zinc/Copper/Lutein (Ocuvite Lutein) 1 each PO DAILY [facility] Last Admin: 03/10/17 08:12 Dose: 1 each Zinc Sulfate (Zincate) 220 mg PO DAILY [facility] Last Admin: 03/10/17 08:11 Dose: 220 mg Discontinued Medications Albuterol (Proventil Neb Soln) 2.5 mg NEB ONETIME ONE Stop: 03/06/17 17:09 Last Admin: 03/06/17 17:38 Dose: 2.5 mg Cholestyramine Resin (Cholestyramine Packet) 4 gm PO BIDMEALS [facility] Last Admin: 03/07/17 08:52 Dose: Not Given Diltiazem HCl (Cardizem) 120 mg PO BIDMEALS [facility] Last Admin: 03/07/17 08:51 Dose: 120 mg Tamsulosin HCl (Flomax) 0.4 mg PO DAILY [facility] Last Admin: 03/09/17 09:14 Dose: 0.4 mg Tamsulosin HCl (Flomax) 0.4 mg PO ONETIME ONE Stop: 03/09/17 09:46 Last Admin: 03/09/17 11:00 Dose: 0.4 mg - Exam General: Alert, Oriented, Cooperative, No Acute Distress HEENT: Pupils Equal, Pupils Reactive Neck: Supple Lungs: Clear to Auscultation, Normal Respiratory Effort Cardiovascular: Regular Rate, Regular Rhythm, No Murmurs GI/Abdominal Exam: Normal Bowel Sounds, Soft, Non-Tender Extremities: Normal Inspection, No Pedal Edema Psy/Mental Status: Alert, Normal Affect, Normal Mood - Problem List & Annotations (1) Status post open reduction with internal fixation of fracture SNOMED Code(s): 901089544 Code(s): Z96.7 - PRESENCE OF OTHER BONE AND TENDON IMPLANTS; Z87.81 - PERSONAL HISTORY OF (HEALED) TRAUMATIC FRACTURE Status: Acute Current Visit : Yes Onset Date: ~03/01/17 Annotation/Comment:: Continuing to work with physical and occupational therapy. Pain well controlled. (2) Acute urinary retention SNOMED Code(s): 566917022 Code(s): R33.8 - OTHER RETENTION OF URINE Status: Acute Current Visit: Yes Annotation/Comment:: Improving. Continue to monitor. Opiates can cause urinary retention so as the patient continues to wean from the [place] he may find this resolves. is learning how to do the straight catheterization so if he needs to go home with this they can continue to do it. Would recommend outpatient urology follow-up regardless of if this improves as he's had a couple episodes of this. (3) Hypertension SNOMED Code(s): 94087278 Code(s): I10 - ESSENTIAL (PRIMARY) HYPERTENSION Status: Acute Current Visit: Yes Annotation/Comment:: Currently well-controlled. Monitor. (4) Expiratory wheezing SNOMED Code(s): 0278625 Code(s): R06.2 - WHEEZING Status: Acute Current Visit: Yes Annotation/ Comment:: No further episodes. Monitor. - Problem List Review Problem List Initiated/Reviewed/Updated: Yes - My Orders Last 24 Hours: My Active Orders 03/11/17 05:11 CBC WITH AUTO DIFF [HEME] AM COMPREHENSIVE METABOLIC PN,CMP [CHEM] AM - Plan Plan:: Continue physical therapy, occupational therapy, straight catheterization and teaching on bladder emptying. Anticipate discharge within 2 weeks.
[2017-03-10] MEDS: Simvastatin 20 MG Tab PO SCH (20:33)
[2017-03-11] MEDS: Acetaminophen 325 MG Tab PO PRN ×2 (03:16→21:07)
[2017-03-11] MEDS: Polyethylene Glycol 3350 Powder 17 GM Packet PO SCH (08:27)
[2017-03-11] MEDS: Calcium Carbonate/Vitamin D3 1250 MG-200 Unit Tab PO SCH ×3 (08:29→20:18)
[2017-03-11] MEDS: Losartan 50 MG Tab PO SCH (08:29)
[2017-03-11] MEDS: Diltiazem IR 60 MG Tab PO SCH ×2 (08:29→18:06)
[2017-03-11] MEDS: Lactobacillus Rhamnosus GG (Probiotic) Cap PO SCH (08:29)
[2017-03-11] MEDS: Tamsulosin 0.4 MG Cap.ER PO SCH (08:30)
[2017-03-11] MEDS: Gemfibrozil 600 MG Tab PO SCH ×2 (08:30→20:18)
[2017-03-11] MEDS: Enoxaparin 40 MG/0.4 ML Syringe SUBCUT SCH (08:31)
[2017-03-11] MEDS: Metoprolol Tartrate 25 MG Tab PO SCH ×2 (08:31→20:19)
[2017-03-11] MEDS: Clopidogrel 75 MG Tab PO SCH (08:32)
[2017-03-11] MEDS: amLODIPine 10 MG Tab PO SCH (08:32)
[2017-03-11] MEDS: Lutein/Minerals/Vitamin C/Vitamin E Acetate Cap PO SCH (08:32)
[2017-03-11] MEDS: Zinc Sulfate 220 MG Cap PO SCH (08:34)
[2017-03-11] MEDS: Ascorbic Acid 500 MG Tab PO SCH (08:34)
[2017-03-11] MEDS: Multivitamin Tab PO SCH (08:37)
--- NOTE | 2017-03-11 08:44 | PCM.SN ---
- Free Text/Narrative Note: Labs reviewed and discussed with patient. Hgb 8.4, albumin 3.0. VSS and patient doing well this am. Continue to monitor. Will recheck on Monday of next week. Questions answered. Called [facility] to request D/C summary, labs from day of discharge. Hgb at d/c was 8.1.
[2017-03-11] MEDS: Acetaminophen/HYDROcodone 325-10 MG Tab PO PRN ×2 (09:40→16:12)
[2017-03-11] MEDS: Simvastatin 20 MG Tab PO SCH (20:18)
[2017-03-12] MEDS: Acetaminophen 325 MG Tab PO PRN ×3 (01:30→15:56)
[2017-03-12] MEDS: Losartan 50 MG Tab PO SCH (08:32)
[2017-03-12] MEDS: Enoxaparin 40 MG/0.4 ML Syringe SUBCUT SCH (08:32)
[2017-03-12] MEDS: Polyethylene Glycol 3350 Powder 17 GM Packet PO SCH (08:32)
[2017-03-12] MEDS: Zinc Sulfate 220 MG Cap PO SCH (08:32)
[2017-03-12] MEDS: Diltiazem IR 60 MG Tab PO SCH ×2 (08:33→17:37)
[2017-03-12] MEDS: Metoprolol Tartrate 25 MG Tab PO SCH ×2 (08:33→20:25)
[2017-03-12] MEDS: Lutein/Minerals/Vitamin C/Vitamin E Acetate Cap PO SCH (08:33)
[2017-03-12] MEDS: amLODIPine 10 MG Tab PO SCH (08:33)
[2017-03-12] MEDS: Gemfibrozil 600 MG Tab PO SCH ×2 (08:34→20:26)
[2017-03-12] MEDS: Calcium Carbonate/Vitamin D3 1250 MG-200 Unit Tab PO SCH ×3 (08:34→20:26)
[2017-03-12] MEDS: Ascorbic Acid 500 MG Tab PO SCH (08:34)
[2017-03-12] MEDS: Multivitamin Tab PO SCH (08:34)
[2017-03-12] MEDS: Clopidogrel 75 MG Tab PO SCH (08:34)
[2017-03-12] MEDS: Lactobacillus Rhamnosus GG (Probiotic) Cap PO SCH (08:35)
[2017-03-12] MEDS: Tamsulosin 0.4 MG Cap.ER PO SCH (08:35)
[2017-03-12] MEDS: Acetaminophen/HYDROcodone 325-10 MG Tab PO PRN ×2 (08:43→17:37)
[2017-03-12] MEDS: Simvastatin 20 MG Tab PO SCH (20:26)
[2017-03-13] MEDS: Acetaminophen 325 MG Tab PO PRN (01:06)
[2017-03-13] MEDS: Diltiazem IR 60 MG Tab PO SCH ×2 (07:46→18:13)
--- NOTE | 2017-03-13 08:02 | PCM.PN ---
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 He landed on his left hip and fractured the femur. He had surgical repair done on the third and was discharged to swing bed status on the eighth. He is currently on swing bed day # 8. He's been struggling with getting up frequently at night to go to the bathroom. He's not sure whether or not he wakes up and then feels like he needs to go, or if the sensation of needing to go as it's rousing him. He was up over 10 times last night. Staff is concerned that he is not getting his rest. He is upset this morning and would like to go home. He is tired of the food here. He still not been cleared by physical therapy and occupational therapy to even be up in the room by himself. We'll work on goals today and see if he can go home this week safely. No chest pain, no shortness of breath, no nausea, no vomiting. Pain is well controlled. Using [place] and Tylenol alternating. Functional Status: Reports: Pain Controlled, Tolerating Diet, Ambulating (with assist.) - Patient Data Vitals - Most Recent: Last Vital Signs Temp 36.6 C 03/13/17 07:40 Pulse 81 03/13/17 07:40 Resp 20 03/13/17 07:40 BP 140/77 03/13/17 07:40 Pulse Ox 97 03/13/17 07:40 Weight - Most Recent: 92.533 kg I&O - Last 24 Hours: Intake & Output 03/12/17 03/13/17 03/13/17 22:59 06:59 14:59 Output Total 175 500 Balance -175 -500 Lab Results Last 24 Hours: Laboratory Results - last 24 hr 03/13/17 Range/Units 06:50 Plt Count 384 H (125-369) X10(3)uL Med Orders - Current: Current Medications Acetaminophen (Tylenol) 650 mg PO Q4H PRN PRN Reason: Pain (mild 1-3) Last Admin: 03/13/17 01:06 Dose: 650 mg Hydrocodone Bitart/Acetaminophen ([place] 325-10 Mg) 1 tab PO Q4H PRN PRN Reason: Pain Last Admin: 03/12/17 17:37 Dose: 1 tab Al Hydroxide/Mg Hydroxide (Mag-Al Susp) 30 ml PO Q4H PRN PRN Reason: Heartburn Last Admin: 03/08/17 08:57 Dose: 30 ml Amlodipine Besylate (Norvasc) 10 mg PO DAILY [facility] Last Admin: 03/12/17 08:33 Dose: 10 mg Ascorbic Acid (Vitamin C) 1,000 mg PO DAILY [facility] Last Admin: 03/12/17 08:34 Dose: 1,000 mg Calcium Carbonate (Calcium Carbonate/Vitamin D 1250 Mg-200 Unit) 1 tab PO TID [facility] Last Admin: 03/12/17 20:26 Dose: 1 tab Clopidogrel Bisulfate (Plavix) 75 mg PO DAILY [facility] Last Admin: 03/12/17 08:34 Dose: 75 mg Diltiazem HCl (Cardizem) 120 mg PO BIDMEALS [facility] Last Admin: 03/13/17 07:46 Dose: 120 mg Enoxaparin Sodium (Lovenox) 40 mg SUBCUT DAILY [facility] Stop: 03/31/17 09:01 Last Admin: 03/12/17 08:32 Dose: 40 mg Gemfibrozil (Lopid) 600 mg PO BID [facility] Last Admin: 03/12/17 20:26 Dose: 600 mg Lactobacillus Rhamnosus (Culturelle) 1 cap PO DAILY [facility] Last Admin: 03/12/17 08:35 Dose: 1 cap Losartan Potassium (Cozaar) 50 mg PO DAILY [facility] Last Admin: 03/12/17 08:32 Dose: 50 mg Metoprolol Tartrate (Lopressor) 25 mg PO BID [facility] Last Admin: 03/12/17 20:25 Dose: 25 mg Multivitamins/Minerals/Vitamin C (Tab-A-Brady) 1 tab PO DAILY [facility] Last Admin: 03/12/17 08:34 Dose: 1 tab Polyethylene Glycol (Miralax) 17 gm PO DAILY [facility] Last Admin: 03/12/17 08:32 Dose: 17 gm Senna/Docusate Sodium (Senna Plus) 2 tab PO DAILY [facility] Last Admin: 03/12/17 08:33 Dose: 2 tab Simvastatin (Zocor) 20 mg PO BEDTIME [facility] Last Admin: 03/12/17 20:26 Dose: 20 mg Tamsulosin HCl (Flomax) 0.8 mg PO DAILY [facility] Last Admin: 03/12/17 08:35 Dose: 0.8 mg Vit C/Vit E/Zinc/Copper/Lutein (Ocuvite Lutein) 1 each PO DAILY [facility] Last Admin: 03/12/17 08:33 Dose: 1 each Zinc Sulfate (Zincate) 220 mg PO DAILY [facility] Last Admin: 03/12/17 08:32 Dose: 220 mg Zolpidem Tartrate (Ambien) 5 mg PO BEDTIME [facility] Discontinued Medications Albuterol (Proventil Neb Soln) 2.5 mg NEB ONETIME ONE Stop: 03/06/17 17:09 Last Admin: 03/06/17 17:38 Dose: 2.5 mg Cholestyramine Resin (Cholestyramine Packet) 4 gm PO BIDMEALS [facility] Last Admin: 03/07/17 08:52 Dose: Not Given Diltiazem HCl (Cardizem) 120 mg PO BIDMEALS [facility] Last Admin: 03/07/17 08:51 Dose: 120 mg Tamsulosin HCl (Flomax) 0.4 mg PO DAILY [facility] Last Admin: 03/09/17 09:14 Dose: 0.4 mg Tamsulosin HCl (Flomax) 0.4 mg PO ONETIME ONE Stop: 03/09/17 09:46 Last Admin: 03/09/17 11:00 Dose: 0.4 mg - Exam General: Alert, Oriented, Cooperative HEENT: Pupils Equal, Pupils Reactive Neck: Supple Lungs: Clear to Auscultation, Normal Respiratory Effort Cardiovascular: Regular Rate, Regular Rhythm, No Murmurs GI/Abdominal Exam: Normal Bowel Sounds, Soft, Non-Tender (No suprapubic distention.) Extremities: No Pedal Edema Skin: Warm, Dry - Problem List & Annotations (1) Status post open reduction with internal fixation of fracture SNOMED Code(s): 425202038 Code(s): Z96.7 - PRESENCE OF OTHER BONE AND TENDON IMPLANTS; Z87.81 - PERSONAL HISTORY OF (HEALED) TRAUMATIC FRACTURE Status: Acute Current Visit : Yes Onset Date: ~03/01/17 Annotation/Comment:: Continuing to work with physical and occupational therapy. Pain well controlled. Hopefully today will be able to set a tentative discharge date. (2) Acute urinary retention SNOMED Code(s): 791545709 Code(s): R33.8 - OTHER RETENTION OF URINE Status: Acute Current Visit: Yes Annotation/Comment:: Patient did not require straight catheterization at all yesterday but has continued to have significant nocturia. We'll address this in 2 ways. Start Ambien 5 mg daily at bedtime to see if we can improve quality of sleep. And with first nighttime arousal to go to the bathroom, we'll straight catheter to completely empty bladder. Hopefully this will reduce the number of nighttime voids. Also have asked that the do any straight catheterization necessary during the day so that she gets some experience with this. (3) Hypertension SNOMED Code(s): 99490242 Code(s): I10 - ESSENTIAL (PRIMARY) HYPERTENSION Status: Acute Current Visit: Yes Annotation/Comment:: Currently well-controlled. Monitor. (4) Expiratory wheezing SNOMED Code(s): 1049514 Code(s): R06.2 - WHEEZING Status: Acute Current Visit: Yes Annotation/ Comment:: No further episodes. Monitor. - Problem List Review Problem List Initiated/Reviewed/Updated: Yes - My Orders Last 24 Hours: My Active Orders 03/13/17 07:55 Communication Order [RC] DAILY 03/13/17 21:00 Zolpidem [Ambien] 5 mg PO BEDTIME 03/15/17 05:11 CBC WITH AUTO DIFF [HEME] AM COMPREHENSIVE METABOLIC PN,CMP [CHEM] AM - Plan Plan:: Continue physical therapy, occupational therapy, straight catheterization and teaching on bladder emptying. Anticipate discharge within 2 weeks.
[2017-03-13] MEDS: Acetaminophen/HYDROcodone 325-10 MG Tab PO PRN (09:18)
[2017-03-13] MEDS: Ascorbic Acid 500 MG Tab PO SCH (09:22)
[2017-03-13] MEDS: Calcium Carbonate/Vitamin D3 1250 MG-200 Unit Tab PO SCH ×3 (09:23→20:00)
[2017-03-13] MEDS: Multivitamin Tab PO SCH (09:23)
[2017-03-13] MEDS: Losartan 50 MG Tab PO SCH (09:23)
[2017-03-13] MEDS: Clopidogrel 75 MG Tab PO SCH (09:23)
[2017-03-13] MEDS: Tamsulosin 0.4 MG Cap.ER PO SCH (09:23)
[2017-03-13] MEDS: Gemfibrozil 600 MG Tab PO SCH ×2 (09:23→20:03)
[2017-03-13] MEDS: Lactobacillus Rhamnosus GG (Probiotic) Cap PO SCH (09:23)
[2017-03-13] MEDS: Metoprolol Tartrate 25 MG Tab PO SCH ×2 (09:24→20:04)
[2017-03-13] MEDS: Enoxaparin 40 MG/0.4 ML Syringe SUBCUT SCH (09:24)
[2017-03-13] MEDS: Lutein/Minerals/Vitamin C/Vitamin E Acetate Cap PO SCH (09:24)
[2017-03-13] MEDS: Polyethylene Glycol 3350 Powder 17 GM Packet PO SCH (09:24)
[2017-03-13] MEDS: Zinc Sulfate 220 MG Cap PO SCH (09:25)
[2017-03-13] MEDS: amLODIPine 10 MG Tab PO SCH (09:25)
[2017-03-13] MEDS: Simvastatin 20 MG Tab PO SCH (20:03)
[2017-03-13] MEDS ORDERED: Zolpidem 5 MG Tab PO SCH (21:00)
[2017-03-14] MEDS: Acetaminophen/HYDROcodone 325-10 MG Tab PO PRN ×2 (06:09→10:55)
[2017-03-14] MEDS: Polyethylene Glycol 3350 Powder 17 GM Packet PO SCH (08:25)
[2017-03-14] MEDS: Metoprolol Tartrate 25 MG Tab PO SCH ×2 (08:25→20:55)
[2017-03-14] MEDS: Enoxaparin 40 MG/0.4 ML Syringe SUBCUT SCH (08:25)
[2017-03-14] MEDS: Calcium Carbonate/Vitamin D3 1250 MG-200 Unit Tab PO SCH ×3 (08:26→20:54)
[2017-03-14] MEDS: Zinc Sulfate 220 MG Cap PO SCH (08:26)
[2017-03-14] MEDS: Gemfibrozil 600 MG Tab PO SCH ×2 (08:26→20:55)
[2017-03-14] MEDS: Diltiazem IR 60 MG Tab PO SCH ×2 (08:26→18:46)
[2017-03-14] MEDS: Losartan 50 MG Tab PO SCH (08:26)
[2017-03-14] MEDS: amLODIPine 10 MG Tab PO SCH (08:27)
[2017-03-14] MEDS: Multivitamin Tab PO SCH (08:27)
[2017-03-14] MEDS: Clopidogrel 75 MG Tab PO SCH (08:27)
[2017-03-14] MEDS: Lutein/Minerals/Vitamin C/Vitamin E Acetate Cap PO SCH (08:27)
[2017-03-14] MEDS: Tamsulosin 0.4 MG Cap.ER PO SCH (08:27)
[2017-03-14] MEDS: Ascorbic Acid 500 MG Tab PO SCH (08:28)
[2017-03-14] MEDS: Lactobacillus Rhamnosus GG (Probiotic) Cap PO SCH (08:28)
--- NOTE | 2017-03-14 12:53 | PCM.PN ---
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 He landed on his left hip and fractured the femur. He had surgical repair done on the third and was discharged to swing bed status on the eighth. He is currently on swing bed day # 9. No chest pain, no shortness of breath, no nausea, no vomiting. Pain is well controlled. Using [place] and Tylenol alternating. Had his first dose of ambien last night and didn't go well, he ended up calling the police from his hospital room because he didn't know what was going on or where he was. was able to catheterize him without difficulty yesterday and he will get teaching on lovenox self-injection today. Functional Status: Reports: Pain Controlled, Tolerating Diet, Ambulating, Urinating - Patient Data Vitals - Most Recent: Last Vital Signs Temp 36.8 C 03/14/17 07:15 Pulse 88 03/14/17 08:25 Resp 20 03/14/17 07:15 BP 116/68 03/14/17 08:27 Pulse Ox 95 03/14/17 07:15 Weight - Most Recent: 87.952 kg I&O - Last 24 Hours: Intake & Output 03/13/17 03/14/17 03/14/17 22:59 06:59 14:59 Intake Total 50 Output Total 200 200 Balance -200 -150 Med Orders - Current: Current Medications Acetaminophen (Tylenol) 650 mg PO Q4H PRN PRN Reason: Pain (mild 1-3) Last Admin: 03/13/17 01:06 Dose: 650 mg Hydrocodone Bitart/Acetaminophen ([place] 325-10 Mg) 1 tab PO Q4H PRN PRN Reason: Pain Last Admin: 03/14/17 10:55 Dose: 1 tab Al Hydroxide/Mg Hydroxide (Mag-Al Susp) 30 ml PO Q4H PRN PRN Reason: Heartburn Last Admin: 03/08/17 08:57 Dose: 30 ml Amlodipine Besylate (Norvasc) 10 mg PO DAILY [facility] Last Admin: 03/14/17 08:27 Dose: 10 mg Ascorbic Acid (Vitamin C) 1,000 mg PO DAILY [facility] Last Admin: 03/14/17 08:28 Dose: 1,000 mg Calcium Carbonate (Calcium Carbonate/Vitamin D 1250 Mg-200 Unit) 1 tab PO TID [facility] Last Admin: 03/14/17 08:26 Dose: 1 tab Clopidogrel Bisulfate (Plavix) 75 mg PO DAILY [facility] Last Admin: 03/14/17 08:27 Dose: 75 mg Diltiazem HCl (Cardizem) 120 mg PO BIDMEALS [facility] Last Admin: 03/14/17 08:26 Dose: 120 mg Enoxaparin Sodium (Lovenox) 40 mg SUBCUT DAILY [facility] Stop: 03/31/17 09:01 Last Admin: 03/14/17 08:25 Dose: 40 mg Gemfibrozil (Lopid) 600 mg PO BID [facility] Last Admin: 03/14/17 08:26 Dose: 600 mg Lactobacillus Rhamnosus (Culturelle) 1 cap PO DAILY [facility] Last Admin: 03/14/17 08:28 Dose: 1 cap Losartan Potassium (Cozaar) 50 mg PO DAILY [facility] Last Admin: 03/14/17 08:26 Dose: 50 mg Melatonin (Melatonin) 3 mg PO BEDTIME [facility] Metoprolol Tartrate (Lopressor) 25 mg PO BID [facility] Last Admin: 03/14/17 08:25 Dose: 25 mg Multivitamins/Minerals/Vitamin C (Tab-A-Brady) 1 tab PO DAILY [facility] Last Admin: 03/14/17 08:27 Dose: 1 tab Polyethylene Glycol (Miralax) 17 gm PO DAILY [facility] Last Admin: 03/14/17 08:25 Dose: 17 gm Senna/Docusate Sodium (Senna Plus) 2 tab PO DAILY [facility] Last Admin: 03/14/17 08:26 Dose: 2 tab Simvastatin (Zocor) 20 mg PO BEDTIME [facility] Last Admin: 03/13/17 20:03 Dose: 20 mg Tamsulosin HCl (Flomax) 0.8 mg PO DAILY [facility] Last Admin: 03/14/17 08:27 Dose: 0.8 mg Vit C/Vit E/Zinc/Copper/Lutein (Ocuvite Lutein) 1 each PO DAILY [facility] Last Admin: 03/14/17 08:27 Dose: 1 each Zinc Sulfate (Zincate) 220 mg PO DAILY [facility] Last Admin: 03/14/17 08:26 Dose: 220 mg Discontinued Medications Albuterol (Proventil Neb Soln) 2.5 mg NEB ONETIME ONE Stop: 03/06/17 17:09 Last Admin: 03/06/17 17:38 Dose: 2.5 mg Cholestyramine Resin (Cholestyramine Packet) 4 gm PO BIDMEALS [facility] Last Admin: 03/07/17 08:52 Dose: Not Given Diltiazem HCl (Cardizem) 120 mg PO BIDMEALS [facility] Last Admin: 03/07/17 08:51 Dose: 120 mg Tamsulosin HCl (Flomax) 0.4 mg PO DAILY [facility] Last Admin: 03/09/17 09:14 Dose: 0.4 mg Tamsulosin HCl (Flomax) 0.4 mg PO ONETIME ONE Stop: 03/09/17 09:46 Last Admin: 03/09/17 11:00 Dose: 0.4 mg Zolpidem Tartrate (Ambien) 5 mg PO BEDTIME [facility] Last Admin: 03/13/17 21:59 Dose: 5 mg - Exam General: Alert, Oriented, Cooperative Lungs: Clear to Auscultation, Normal Respiratory Effort Cardiovascular: Regular Rate, Regular Rhythm GI/Abdominal Exam: Normal Bowel Sounds, Soft, Non-Tender, No Distention Skin: Warm, Dry, Intact Psy/Mental Status: Alert, Normal Affect, Normal Mood - Problem List & Annotations (1) Status post open reduction with internal fixation of fracture SNOMED Code(s): 387232541 Code(s): Z96.7 - PRESENCE OF OTHER BONE AND TENDON IMPLANTS; Z87.81 - PERSONAL HISTORY OF (HEALED) TRAUMATIC FRACTURE Status: Acute Current Visit : Yes Onset Date: ~03/01/17 Annotation/Comment:: Continuing to work with physical and occupational therapy. Pain well controlled. Plan for discharge home tomorrow with lovenox for DVT prophylaxis. (2) Acute urinary retention SNOMED Code(s): 543930931 Code(s): R33.8 - OTHER RETENTION OF URINE Status: Acute Current Visit: Yes Annotation/Comment:: Slept better last night with fewer voids but ambien not a good choice. Will try melatonin tonight. Discussed indication for cathing would be patient feels uncomfortable and feels like he needs to go. Will set up outpatient urology appointment. (3) Hypertension SNOMED Code(s): 94094317 Code(s): I10 - ESSENTIAL (PRIMARY) HYPERTENSION Status: Acute Current Visit: Yes Annotation/Comment:: Currently well-controlled. Monitor. (4) Expiratory wheezing SNOMED Code(s): 3528949 Code(s): R06.2 - WHEEZING Status: Acute Current Visit: Yes Annotation/ Comment:: No further episodes. Monitor. - Problem List Review Problem List Initiated/Reviewed/Updated: Yes - My Orders Last 24 Hours: My Active Orders 03/14/17 21:00 Melatonin 3 mg PO BEDTIME 03/15/17 05:11 CBC WITH AUTO DIFF [HEME] AM COMPREHENSIVE METABOLIC PN,CMP [CHEM] AM - Plan Plan:: Continue physical therapy, occupational therapy, straight catheterization and teaching on bladder emptying, teaching on lovenox injection. Anticipate discharge tomorrow.
[2017-03-14] MEDS: Simvastatin 20 MG Tab PO SCH (20:55)
[2017-03-14] MEDS ORDERED: Melatonin 3 MG Tab PO SCH (21:00)
[2017-03-14] MEDS: Acetaminophen 325 MG Tab PO PRN (23:55)
[2017-03-15] MEDS: Acetaminophen/HYDROcodone 325-10 MG Tab PO PRN ×2 (03:49→08:28)
[2017-03-15] MEDS: Multivitamin Tab PO SCH (08:29)
[2017-03-15] MEDS: Losartan 50 MG Tab PO SCH (08:29)
[2017-03-15] MEDS: Clopidogrel 75 MG Tab PO SCH (08:29)
[2017-03-15] MEDS: Lutein/Minerals/Vitamin C/Vitamin E Acetate Cap PO SCH (08:30)
[2017-03-15] MEDS: Ascorbic Acid 500 MG Tab PO SCH (08:30)
[2017-03-15] MEDS: Diltiazem IR 60 MG Tab PO SCH (08:30)
[2017-03-15] MEDS: Lactobacillus Rhamnosus GG (Probiotic) Cap PO SCH (08:30)
[2017-03-15] MEDS: amLODIPine 10 MG Tab PO SCH (08:30)
[2017-03-15] MEDS: Tamsulosin 0.4 MG Cap.ER PO SCH (08:30)
[2017-03-15] MEDS: Zinc Sulfate 220 MG Cap PO SCH (08:30)
[2017-03-15] MEDS: Polyethylene Glycol 3350 Powder 17 GM Packet PO SCH (08:31)
[2017-03-15] MEDS: Calcium Carbonate/Vitamin D3 1250 MG-200 Unit Tab PO SCH ×2 (08:31→14:03)
[2017-03-15] MEDS: Metoprolol Tartrate 25 MG Tab PO SCH (08:31)
[2017-03-15] MEDS: Gemfibrozil 600 MG Tab PO SCH (08:31)
[2017-03-15 08:32] VITALS: BP 102/62
[2017-03-15] MEDS: Enoxaparin 40 MG/0.4 ML Syringe SUBCUT SCH (12:40)
--- NOTE | 2017-03-15 13:08 | PCM.DCSUM1 ---
Discharge Summary - Hospital Course Free Text/Narrative:: Date of admission for swing bed services: 03/06/17 Date of discharge: 03/15/2017 Admission diagnosis: Left hip fracture status post open reduction internal fixation with debility and weakness requiring physical therapy Discharge diagnosis: #1 Same #2 acute urinary retention significantly improved. #3 CK 83, stable. #4 postoperative anemia, hemoglobin was at 9.4 on discharge. Secondary diagnoses: History of stroke Hyperlipidemia Hypertension BPH Diabetes mellitus 2 currently in remission. Consults: PT and OT. 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 He had surgery on 03/01/2017 with a pinning of the hip. He was in the [facility] and [facility] for 5 days and then transferred here for swing bed status. Hospital course by problem: See below. On the day of discharge: Patient had no chest pain, no shortness breath, no nausea, no vomiting, no diarrhea. We had tried melatonin for sleep and he did very well with this and would like a prescription for home. He's been voiding well although has required a couple intermittent catheterizations over the past 3 days. Reviewed with him and his the indications for catheterization being suprapubic pressure, frequent urination more than every hour where he feels like he needs to go but is voiding small amounts, or if they catheterize and he has very large volumes he should be catheterized once daily. On exam, there is atraumatic and normocephalic. Pupils equally round and reactive. Neck supple. Lungs clear to auscultation. Heart sounds are regular with normal rate and rhythm, no murmurs. Abdomen soft, nontender, nondistended. Normal bowel sounds. Incision on the left hip is clean and dry with some healing bruising that the wound itself is well-healed. A couple of Steri-Strips are still in place. Discharge instructions: Patient discharged to home with and home health services. The patient requires nursing for physical therapy and occupational therapy to evaluate and treat, homebound status, and assistance with self catheterization. Anticipate less than 4 weeks of home care required. Follow up with urology and orthopedic surgery on April 12 as previously scheduled. - Discharge Data Discharge Date: 03/15/17 Discharge Disposition: Home, W Home Health Agency 06 Condition: Good - Discharge Diagnosis/Problem(s) (1) Status post open reduction with internal fixation of fracture SNOMED Code(s): 720664402 ICD Code: Z96.7 - PRESENCE OF OTHER BONE AND TENDON IMPLANTS; Z87.81 - PERSONAL HISTORY OF (HEALED) TRAUMATIC FRACTURE Status: Acute Current Visit : Yes Onset Date: ~03/01/17 Problem Details: Home health for physical therapy, occupational therapy, continuing to assist the patient's and bladder catheterization, as patient will be home bound. Will likely not need care for more than a month. The patient was seen [id number] today on the date of discharge. Continue Lovenox at home daily for 16 more days. (2) Acute urinary retention SNOMED Code(s): 790425046 ICD Code: R33.8 - OTHER RETENTION OF URINE Status: Acute Current Visit: Yes Problem Details: Requiring intermittent catheterization. Home health to work with the on having supplies and intermittent catheterization. Follow- up appointment with urology for acute urinary retention January 10 when they go to [facility] for orthopedic follow-up. (3) Hypertension SNOMED Code(s): 15318364 ICD Code: I10 - ESSENTIAL (PRIMARY) HYPERTENSION Status: Acute Current Visit: Yes Problem Details: Continue current medication. (4) Expiratory wheezing SNOMED Code(s): 4998523 ICD Code: R06.2 - WHEEZING Status: Acute Current Visit: Yes Problem Details: No further episodes during hospitalization. - Patient Summary/Data Consults: Consultations 03/06/17 15:15 OT Evaluation and Treatment [CONS] Routine Please Evaluate and Treat. OT Reason for Consult: Strengthening This query below is only for informational purposes and is not editable. Admission Diagnosis/Problem: Weakness PT Evaluation and Treatment [CONS] Routine Please Evaluate and Treat. PT Reason for Consult: Strengthening Special Instructions: Physical therapy for gait training. This query below is only for informational purposes and is not editable. Admission Diagnosis/Problem: Weakness - Patient Instructions Diet: Heart Healthy Diet Driving: Do Not Drive - Discharge Plan Prescriptions/Med Rec: Hydrocodone/Acetaminophen [Hydrocodon-Acetaminophn 10-325] 1 tab PO Q4H PRN #15 tablet PRN Reason: Pain Melatonin 3 mg PO BEDTIME #30 tablet Tamsulosin [Flomax] 0.4 mg PO DAILY #30 cap.er Home Medications: Home Meds Clopidogrel [Plavix] 75 mg PO DAILY 05/09/14 [History] Diltiazem HCl [Cardizem] 120 mg PO BIDMEALS 05/09/14 [History] Gemfibrozil [Lopid] 600 mg PO BID 05/09/14 [History] Metoprolol Tartrate [Lopressor] 25 mg PO BID 05/09/14 [History] Simvastatin [Zocor] 20 mg PO BEDTIME 05/09/14 [History] amLODIPine [Norvasc] 10 mg PO DAILY 05/09/14 [History] Losartan [Cozaar] 50 mg PO DAILY 11/04/15 [History] Acetaminophen 650 mg PO Q4H PRN 03/06/17 [History] Enoxaparin [Lovenox] 40 mg SUBCUT DAILY 03/06/17 [History] L.acidoph,Paracasei, B.lactis [Probiotic] 1 each PO DAILY 03/06/17 [History] Lutein/Min/Vit C/Vit E Acetate [Ocuvite Lutein] 1 cap PO DAILY 03/06/17 [History ] Polyethylene Glycol 3350 [MiraLAX] 17 gm PO DAILY 03/06/17 [History] Sennosides/Docusate Sodium [Senokot-S Tablet] 2 each PO DAILY 03/06/17 [History] Ascorbic Acid [Vitamin C] 1,000 mg PO DAILY tablet 03/15/17 [Rx] Calcium Carbonate/Vitamin D3 [Calcium Carbonate/Vitamin D 1250 MG-200 Unit] 1 tab PO TID tablet 03/15/17 [Rx] Hydrocodone/Acetaminophen [Hydrocodon-Acetaminophn 10-325] 1 tab PO Q4H PRN #15 tablet 03/15/17 [Rx] Melatonin 3 mg PO BEDTIME #30 tablet 03/15/17 [Rx] Tamsulosin [Flomax] 0.4 mg PO DAILY #30 cap.er 03/15/17 [Rx] Zinc Sulfate [Zincate] 220 mg PO DAILY cap 03/15/17 [Rx] Patient Handouts: Total Hip Replacement, [id number], Fall Prevention in Hospitals, Adult, How and Where to Give Subcutaneous Injections Using a Prefilled Syringe, How and Where to Give Subcutaneous Enoxaparin Injections, Venous Thromboembolism Prevention - Discharge Summary/Plan Comment DC Time >30 min.: Yes - Patient Data Vitals - Most Recent: Last Vital Signs Temp 36.8 C 03/14/17 07:15 Pulse 75 03/15/17 08:31 Resp 20 03/14/17 07:15 BP 102/62 03/15/17 08:31 Pulse Ox 95 03/14/17 07:15 Weight - Most Recent: 87.952 kg I&O - Last 24 hours: Intake & Output 03/14/17 03/15/17 03/15/17 22:59 06:59 14:59 Intake Total 50 Output Total 250 Balance -200 Lab Results - Last 24 hrs: Laboratory Results - last 24 hr 03/15/17 03/15/17 Range/Units 06:05 06:05 WBC 9.5 (4.5-12.0) X10-3/uL RBC 3.10 L (4.30-5.75) x10(6)uL Hgb 9.4 L (11.5-15.5) g/dL Hct 28.9 L (30.0-51.3) % MCV 93.1 (80-96) fL MCH 30.4 (27.7-33.6) pg MCHC 32.7 (32.2-35.4) g/dL RDW 14.1 (11.5-15.5) % Plt Count 422 H (125-369) X10(3)uL MPV 8.0 (7.4-10.4) fL Neut % (Auto) 57.8 (46-82) % Lymph % (Auto) 31.3 (13-37) % [place] % (Auto) 8.9 (4-12) % Eos % (Auto) 2 (1.0-5.0) % Baso % (Auto) 1 (0-2) % Neut # (Auto) 5.6 (1.6-8.3) # Lymph # (Auto) 3.0 (0.6-5.0) # [place] # (Auto) 0.8 (0.0-1.3) # Eos # (Auto) 0.1 (0.0-0.8) # Baso # (Auto) 0.0 (0.0-0.2) # Sodium 142 (135-145) mmol/L Potassium 4.6 (3.5-5.3) mmol/L Chloride 106 (100-110) mmol/L Carbon Dioxide 22 (21-32) mmol/L BUN 36 H (7-18) mg/dL Creatinine 1.3 (0.70-1.30) mg/dL Est Cr Clr Drug Dosing 50.61 mL/min Estimated GFR (MDRD) 54 L (>60) BUN/Creatinine Ratio 27.7 H (9-20) Glucose 101 (80-116) mg/dL Calcium 9.2 (8.6-10.2) mg/dL Total Bilirubin 0.7 (0.1-1.3) mg/dL AST 27 H (5-25) IU/L ALT 20 D (12-36) U/L Alkaline Phosphatase 108 (56-112) IU/L Total Protein 6.9 (6.0-8.0) g/dL Albumin 3.4 (3.2-4.6) g/dL Globulin 3.5 g/dL Albumin/Globulin Ratio 1.0 Med Orders - Current: Current Medications Acetaminophen (Tylenol) 650 mg PO Q4H PRN PRN Reason: Pain (mild 1-3) Last Admin: 03/14/17 23:55 Dose: 650 mg Hydrocodone Bitart/Acetaminophen ([place] 325-10 Mg) 1 tab PO Q4H PRN PRN Reason: Pain Last Admin: 03/15/17 08:28 Dose: 1 tab Al Hydroxide/Mg Hydroxide (Mag-Al Susp) 30 ml PO Q4H PRN PRN Reason: Heartburn Last Admin: 03/08/17 08:57 Dose: 30 ml Amlodipine Besylate (Norvasc) 10 mg PO DAILY [facility] Last Admin: 03/15/17 08:30 Dose: 10 mg Ascorbic Acid (Vitamin C) 1,000 mg PO DAILY [facility] Last Admin: 03/15/17 08:30 Dose: 1,000 mg Calcium Carbonate (Calcium Carbonate/Vitamin D 1250 Mg-200 Unit) 1 tab PO TID [facility] Last Admin: 03/15/17 08:31 Dose: 1 tab Clopidogrel Bisulfate (Plavix) 75 mg PO DAILY [facility] Last Admin: 03/15/17 08:29 Dose: 75 mg Diltiazem HCl (Cardizem) 120 mg PO BIDMEALS [facility] Last Admin: 03/15/17 08:30 Dose: 120 mg Enoxaparin Sodium (Lovenox) 40 mg SUBCUT DAILY [facility] Stop: 03/31/17 09:01 Last Admin: 03/15/17 12:40 Dose: 40 mg Gemfibrozil (Lopid) 600 mg PO BID [facility] Last Admin: 03/15/17 08:31 Dose: 600 mg Lactobacillus Rhamnosus (Culturelle) 1 cap PO DAILY [facility] Last Admin: 03/15/17 08:30 Dose: 1 cap Losartan Potassium (Cozaar) 50 mg PO DAILY [facility] Last Admin: 03/15/17 08:29 Dose: 50 mg Melatonin (Melatonin) 3 mg PO BEDTIME [facility] Last Admin: 03/14/17 20:55 Dose: 3 mg Metoprolol Tartrate (Lopressor) 25 mg PO BID [facility] Last Admin: 03/15/17 08:31 Dose: 25 mg Multivitamins/Minerals/Vitamin C (Tab-A-Brady) 1 tab PO DAILY [facility] Last Admin: 03/15/17 08:29 Dose: 1 tab Polyethylene Glycol (Miralax) 17 gm PO DAILY [facility] Last Admin: 03/15/17 08:31 Dose: 17 gm Senna/Docusate Sodium (Senna Plus) 2 tab PO DAILY [facility] Last Admin: 03/15/17 08:31 Dose: 2 tab Simvastatin (Zocor) 20 mg PO BEDTIME [facility] Last Admin: 03/14/17 20:55 Dose: 20 mg Tamsulosin HCl (Flomax) 0.8 mg PO DAILY [facility] Last Admin: 03/15/17 08:30 Dose: 0.8 mg Vit C/Vit E/Zinc/Copper/Lutein (Ocuvite Lutein) 1 each PO DAILY [facility] Last Admin: 03/15/17 08:30 Dose: 1 each Zinc Sulfate (Zincate) 220 mg PO DAILY [facility] Last Admin: 03/15/17 08:30 Dose: 220 mg Discontinued Medications Albuterol (Proventil Neb Soln) 2.5 mg NEB ONETIME ONE Stop: 03/06/17 17:09 Last Admin: 03/06/17 17:38 Dose: 2.5 mg Cholestyramine Resin (Cholestyramine Packet) 4 gm PO BIDMEALS [facility] Last Admin: 03/07/17 08:52 Dose: Not Given Diltiazem HCl (Cardizem) 120 mg PO BIDMEALS [facility] Last Admin: 03/07/17 08:51 Dose: 120 mg Tamsulosin HCl (Flomax) 0.4 mg PO DAILY [facility] Last Admin: 03/09/17 09:14 Dose: 0.4 mg Tamsulosin HCl (Flomax) 0.4 mg PO ONETIME ONE Stop: 03/09/17 09:46 Last Admin: 03/09/17 11:00 Dose: 0.4 mg Zolpidem Tartrate (Ambien) 5 mg PO BEDTIME [facility] Last Admin: 03/13/17 21:59 Dose: 5 mg *Q Meaningful Use (DIS) - VTE *Q VTE Criteria *Q: - Stroke *Q Stroke Criteria *Q: - AMI *Q AMI Criteria *Q:
== END 2017-03-15 13:30 | disposition home health service (06) | DRG 561 ==
LOC: FB.MS 14:52
PROVIDERS: ADMIT Family Medicine; ATTEND Family Medicine
DX: Z47.89 Encounter for other orthopedic aftercare (principal); R53.1 Weakness; Z96.7 Presence of other bone and tendon implants; R06.02 Shortness of breath; E78.5 Hyperlipidemia, unspecified; Z86.73 Personal history of transient ischemic attack (TIA), and cerebral infarction without residual deficits; I10 Essential (primary) hypertension; Z88.8 Allergy status to other drugs, medicaments and biological substances; Z79.899 Other long term (current) drug therapy; Z79.01 Long term (current) use of anticoagulants; H54.7 Unspecified visual loss; E11.9 Type 2 diabetes mellitus without complications; Z87.891 Personal history of nicotine dependence
CPT/HCPCS: 36415; 51701; 51798; 80053; 81001; 85025; 85049; 94640; 97110-GO; 97110-GP; 97116-GP; 97161-GP; 97165-GO; 97530-GO; 97530-GO-KX; 97530-GP; 97535-GO; A9270-GY; J1650

== ENCOUNTER 2019-03-10 00:41 | Emergency (ER) | payer MEDICARE, BC ==
--- NOTE | 2019-03-10 01:23 | EDM.PDOC ---
ED HPI GENERAL MEDICAL PROBLEM - General Chief Complaint: Lower Extremity Injury/Pain Time Seen by Provider: 03/10/19 01:18 Source of Information: Reports: Patient History Limitations: Reports: No Limitations - History of Present Illness INITIAL COMMENTS - FREE TEXT/NARRATIVE: Mr Dumont complains of R inner thigh pain. He reports falling a out of bed, landing on his right side,and shortly afterwards,noticed a lump/swelling of te inner side of his thigh.It is mildly painful. He has no other visible injuries, and is able to walk,bear weight on both legs,using a walker.he has a h/o HTN, stroke and takes Plavix and ASA R inner thigh Pain Score (Numeric/FACES): 4 - Related Data Allergies Allergy/AdvReac Type Severity Reaction Status Date / Time allopurinol Allergy Mild Rash Verified 03/10/19 00:45 hydrocodone Allergy Itching Verified 03/10/19 00:45 ambien Allergy Hallucinati Uncoded 03/10/19 00:45 ons Home Meds: Home Meds Clopidogrel [Plavix] 75 mg PO DAILY 05/09/14 [History] Diltiazem HCl [Cardizem] 120 mg PO BIDMEALS 05/09/14 [History] Gemfibrozil [Lopid] 600 mg PO BID 05/09/14 [History] Metoprolol Tartrate [Lopressor] 25 mg PO BID 05/09/14 [History] Simvastatin [Zocor] 20 mg PO BEDTIME 05/09/14 [History] amLODIPine [Norvasc] 10 mg PO DAILY 05/09/14 [History] Losartan [Cozaar] 50 mg PO DAILY 11/04/15 [History] Acetaminophen 650 mg PO Q4H PRN 03/06/17 [History] Lutein/Min/Vit C/Vit E Acetate [Ocuvite Lutein] 1 cap PO BEDTIME 03/06/17 [ History] Sennosides/Docusate Sodium [Senokot-S Tablet] 2 each PO DAILY PRN 03/06/17 [ History] Mirabegron [Myrbetriq] 50 mg DAILY 03/10/19 [History] Past Medical History - Past Health History Medical/Surgical History: Denies Medical/Surgical History HEENT History: Reports: Cataract, Impaired Vision Cardiovascular History: Reports: High Cholesterol, Hypertension Gastrointestinal History: Reports: Hemorrhoids Genitourinary History: Reports: Other (See Below) Other Genitourinary History: NOCTURIA Musculoskeletal History: Reports: Fracture, Gout Other Musculoskeletal History: fx bilat hips, L rotator cuff Neurological History: Reports: CVA, TIA Other Neuro History: on 11/06/2013 Endocrine/Metabolic History: Reports: Diabetes, Type II, Obesity/BMI 30+, Other (See Below) Other Endocrine/Metabolic History: about a year ago was taken off of his oral diabetic meds per his doctor Hematologic History: Reports: Anticoagulation Therapy, Other (See Below) Other Hematologic History: on blood thinners Immunologic History: Reports: None - Infectious Disease History Infectious Disease History: Reports: Chicken Pox, Measles - Past Surgical History HEENT Surgical History: Reports: Cataract Surgery Other HEENT Surgeries/Procedures: bilat cataract GI Surgical History: Reports: Colonoscopy, Hernia, Inguinal Musculoskeletal Surgical History: Reports: ORIF, Shoulder Surgery Other Musculoskeletal Surgeries/Procedures:: Pt family states that he broke both hip and had pins put in about 25 years ago. this was the right hip. L hip fx with ORIF 1-3-, L rotator cuff surgery Social & Family History - Family History Family Medical History: Noncontributory - Tobacco Use Smoking Status *Q: Former Smoker Years of Tobacco use: 15 Used Tobacco, but Quit: Yes Month/Year Tobacco Last Used: 1974 - Caffeine Use Caffeine Use: Reports: Coffee - Alcohol Use Days Per Week of Alcohol Use: 7 Number of Drinks Per Day: 2 Total Drinks Per Week: 14 - Recreational Drug Use Recreational Drug Use: No - Living Situation & Occupation Living situation: Reports: , with Spouse Review of Systems - Review of Systems Review Of Systems: Comprehensive ROS is negative, except as noted in HPI. ED EXAM, GENERAL - Physical Exam Exam: See Below Exam Limited By: No Limitations General Appearance: Alert, WD/WN Ears: Normal External Exam Nose: Normal Inspection Throat/Mouth: Normal Inspection Head: Atraumatic Neck: Normal Inspection Respiratory/Chest: No Respiratory Distress Cardiovascular: Normal Peripheral Pulses Extremities: Other (Ther e is a mass on the right medial thigh aspect,slightly tender,warm. He has normal peripheral pulses.Full ROM of hip,knee) Course - Vital Signs Last Recorded V/S: Last Vital Signs Temp 97.4 F 03/10/19 00:41 Pulse 65 03/10/19 01:55 Resp 18 03/10/19 01:55 BP 141/54 H 03/10/19 01:55 Pulse Ox 98 03/10/19 01:55 - Orders/Labs/Meds Orders: Active Orders 24 hr Category Date Time Status Femur Min 2V Rt [CR] Stat Exams 03/10/19 01:17 Taken Departure - Departure Time of Disposition: 06:52 Disposition: Home, Self-Care 01 Condition: Good Clinical Impression: Hamstring sprain - Discharge Information Instructions: Contusion, [id number] Referrals: PCP,None [Primary Care Provider] - Forms: ED Department Discharge Additional Instructions: Activity as tolerated. Ice to inner leg for 10 minutes 4-6 times a day. Tylenol as needed for pain. Follow up with Mariangel Andino March 11 at [facility] for recheck , call for appt. Return to ER if worsening pain, swelling or any other concerning signs/symptoms. Sepsis Event Note - Evaluation Sepsis Screening Result: No Definite Risk - Focused Exam Vital Signs: Vital Signs Temp Pulse Resp BP Pulse Ox 03/10/19 01:55 65 18 141/54 H 98 03/10/19 00:41 97.4 F 67 18 123/52 L 100 Date Exam was Performed: 03/10/19 Time Exam was Performed: 06:51 - Problem List & Annotations (1) Hamstring sprain SNOMED Code(s): 755300411 Code(s): S76.399A - INJ MSL/FASC/TND POSTERIOR GRP AT THI LEV, UNSP THIGH, INIT Status: Acute (2) Thigh pain Status: Acute Qualifiers: Laterality: right Qualified Code(s): M79.651 - Pain in right thigh (3) Accidental fall from bed SNOMED Code(s): 16217246 Code(s): W06.XXXA - FALL FROM BED, INITIAL ENCOUNTER Status: Acute Qualifiers: Encounter type: initial encounter Qualified Code(s): W06.XXXA - Fall from bed, initial encounter (4) Hypertension SNOMED Code(s): 23537529 Code(s): I10 - ESSENTIAL (PRIMARY) HYPERTENSION Status: Acute Annotation/ Comment:: Continue current medication. Qualifiers: Hypertension type: essential hypertension Qualified Code(s): I10 - Essential (primary) hypertension - Problem List Review Problem List Initiated/Reviewed/Updated: Yes - My Orders Last 24 Hours: My Active Orders 03/10/19 01:17 Femur Min 2V Rt [CR] Stat - Assessment/Plan Last 24 Hours: My Active Orders 03/10/19 01:17 Femur Min 2V Rt [CR] Stat Plan: X ray looks good. Likelihood of DVT is low,given history-and physical exam.In any case,an US is unavailable at this time. I recommended RICE and follow up tomorrow with PCP. Consider US of symptoms are worse.
[2019-03-10 02:07] VITALS: BP 141/54; PULSE 65
--- NOTE | 2019-03-11 12:02 | CR ---
INDICATION: Upper inner thigh and groin pain. RIGHT FEMUR: Four images of the right femur, in frontal and lateral projection , reveal evidence of hip pinning, which appears to be intact with four pins still in place at the proximal right femur. There appears to be some minimal degenerative change at the hip joint and knee joint. A fracture or dislocation was not identified. There may be some mild demineralization raising the question of osteomalacia or osteoporosis - correlate clinically. Incidental note of calcifications in the iliac and femoral arteries. IMPRESSION: 1. No acute abnormality identified. If occult bony abnormality is suspected clinically, nuclear bone imaging may be helpful for further evaluation. 2. ASD. 3. Cannot exclude demineralization - correlate clinically as to possibility or osteomalacia or osteoporosis. MTDD
== END 2019-03-10 02:00 | disposition home or self-care (01) ==
LOC: FB.ED 00:41
DX: S76.811A Strain of other specified muscles, fascia and tendons at thigh level, right thigh, initial encounter (principal); I10 Essential (primary) hypertension; E78.00 Pure hypercholesterolemia, unspecified; E11.9 Type 2 diabetes mellitus without complications; F17.210 Nicotine dependence, cigarettes, uncomplicated; E66.9 Obesity, unspecified; Z68.30 Body mass index [BMI] 30.0-30.9, adult; Z88.6 Allergy status to analgesic agent; Z88.8 Allergy status to other drugs, medicaments and biological substances; W06.XXXA Fall from bed, initial encounter
CPT/HCPCS: 73552-RT; 99282; 99283-25

== ENCOUNTER 2023-05-23 11:48 | Emergency (ER) | payer MEDICARE, BC ==
[2023-05-23] MEDS: Morphine 4 MG/ML VIAL IM ONE (13:23)
[2023-05-23 13:32] LABS: BASOPHILS PERCENT AUTO 0.5 % (0.3-3.8); EOSINOPHILS ABSOLUTE AUTO 0.1 x10-3/uL (0.0-0.6); EOSINOPHILS PERCENT AUTO 0.7 % (0.1-6.8); HEMATOCRIT 38.5 % (38.3-50.1); HEMOGLOBIN 12.9 g/dL (12.9-17.7); LYMPHOCYTES ABSOLUTE AUTO 2.1 x10-3/uL (0.5-4.5); LYMPHOCYTES PERCENT AUTO 24.4 % (15.8-45.3); MEAN CORPUSCULAR HEMOGLOBIN 30.9 pg (27.0-33.3); MEAN CORPUSCULAR HGB CONC 33.5 g/dL (28.7-35.3); MEAN CORPUSCULAR VOLUME 92.4 fL (80.8-98.7); MEAN PLATELET VOLUME 7.7 fL (6.7-11.0); MONOCYTES ABSOLUTE AUTO 0.8 x10-3/uL (0.0-1.2); MONOCYTES PERCENT AUTO 9.7 % (5.5-15.2); NEUTROPHILS ABSOLUTE AUTO 5.5 x10-3/uL (1.7-6.9); NEUTROPHILS PERCENT AUTO 64.7 % (40.3-71.8); PLATELET COUNT,PLT 268 x10(3)uL (117-477); RED BLOOD CELL COUNT 4.17 x10(6)uL (3.90-5.90); RED CELL DISTRIBUTION WIDTH 13.6 % (12.4-15.0); WHITE BLOOD CELL COUNT,WBC 8.5 x10-3/uL (3.2-10.1)
[2023-05-23] MEDS: Acetaminophen 500 MG Tab PO ONE (13:36)
[2023-05-23 13:37] LABS: BLOOD UREA NITROGEN,BUN 27 mg/dL (7-18); CALCIUM 9.6 mg/dL (8.6-10.2); CARBON DIOXIDE,CO2 20 mmol/L (21-32); CHLORIDE,CL 105 mmol/L (100-110); CREATININE 0.9 mg/dL (0.70-1.30); EST CRCL DRUG DOSING (CG) 57.89 mL/min; ESTIMATED GFR 87 mL/min (>60); GLUCOSE RANDOM 108 mg/dL (80-116); POTASSIUM,K 3.7 mmol/L (3.5-5.3); SODIUM,NA 139 mmol/L (135-145)
[2023-05-23 13:43] LABS: A/G RATIO 0.8; ALANINE AMINOTRANSFERASE,ALT 25 U/L (12-36); ALBUMIN 3.3 g/dL (3.2-4.6); ALKALINE PHOSPHATASE 107 IU/L (56-112); ASPARTATE AMNIOTRANSFERASE,AST 20 IU/L (5-25); BILIRUBIN TOTAL 0.5 mg/dL (0.1-1.3); PROTEIN TOTAL,TP 7.3 g/dL (6.0-8.0)
[2023-05-23 14:58] LABS: BILIRUBIN,URINE NEGATIVE (NEGATIVE); GLUCOSE,URINE NORMAL (NORMAL); KETONES,URINE NEGATIVE (NEGATIVE); LEUKOCYTE ESTERASE,URINE NEGATIVE (NEGATIVE); NITRITE,URINE NEGATIVE (NEGATIVE); OCCULT BLOOD,URINE NEGATIVE (NEGATIVE); PROTEIN,URINE NEGATIVE (NEGATIVE); UROBILINOGEN,URINE NORMAL (NEGATIVE)
[2023-05-23 15:00] LABS: APPEARANCE,URINE CLEAR (CLEAR); BACTERIA,URINE RARE (NS); COLOR,URINE YELLOW (YELLOW); RBC,URINE NOT SEEN (0-5); SQUAMOUS EPITHELIAL CELLS,UR RARE (NS,R,O); WBC,URINE 0-5 (0-5)
[2023-05-23] MEDS: Ketorolac 30 MG/ML SDV IM ONE (15:20)
[2023-05-23 16:51] VITALS: BP 126/59; PULSE 91
== END 2023-05-23 16:00 | disposition home or self-care (01) ==
LOC: FB.ED 11:48
DX: M16.0 Bilateral primary osteoarthritis of hip (principal); E78.00 Pure hypercholesterolemia, unspecified; I10 Essential (primary) hypertension; E11.9 Type 2 diabetes mellitus without complications; E66.9 Obesity, unspecified; Z88.8 Allergy status to other drugs, medicaments and biological substances; Z88.5 Allergy status to narcotic agent; Z79.899 Other long term (current) drug therapy; Z86.19 Personal history of other infectious and parasitic diseases; Z68.32 Body mass index [BMI] 32.0-32.9, adult
CPT/HCPCS: 36415; 73521; 80053; 81001; 84550; 85025; 86140; 96372; 99284; A9270; J1885; J2270; 99283

== ENCOUNTER 2023-06-26 21:46 | Emergency (ER) | payer MEDICARE, BC ==
[2023-06-26] MEDS ORDERED: Sodium Chloride 0.9% 10 ML Syringe FLUSH PRN (21:57)
[2023-06-26] MEDS: Pantoprazole 40 MG Vial IVPUSH ONE (22:05)
[2023-06-26 22:10] LABS: HEMATOCRIT 28.3 % (38.3-50.1); HEMOGLOBIN 9.1 g/dL (12.9-17.7); MEAN CORPUSCULAR HEMOGLOBIN 30.3 pg (27.0-33.3); MEAN CORPUSCULAR HGB CONC 32.1 g/dL (28.7-35.3); MEAN CORPUSCULAR VOLUME 94.2 fL (80.8-98.7); MEAN PLATELET VOLUME 7.4 fL (6.7-11.0); PLATELET COUNT,PLT 349 x10(3)uL (117-477); RED CELL DISTRIBUTION WIDTH 14.6 % (12.4-15.0); WHITE BLOOD CELL COUNT,WBC 14.4 x10-3/uL (3.2-10.1)
[2023-06-26 22:20] LABS: A/G RATIO 0.6; ALANINE AMINOTRANSFERASE,ALT 18 U/L (12-36); ALBUMIN 2.3 g/dL (3.2-4.6); ALKALINE PHOSPHATASE 103 IU/L (56-112); ASPARTATE AMNIOTRANSFERASE,AST 18 IU/L (5-25); BILIRUBIN TOTAL 0.3 mg/dL (0.1-1.3); BLOOD UREA NITROGEN,BUN 37 mg/dL (7-18); BUN/CREATININE RATIO 23.1 (9-20); CALCIUM 8.7 mg/dL (8.6-10.2); CARBON DIOXIDE,CO2 13 mmol/L (21-32); CHLORIDE,CL 110 mmol/L (100-110); CREATININE 1.6 mg/dL (0.70-1.30); EST CRCL DRUG DOSING (CG) 32.57 mL/min; ESTIMATED GFR 44 mL/min (>60); GLUCOSE RANDOM 162 mg/dL (80-116); PROTEIN TOTAL,TP 5.9 g/dL (6.0-8.0); SODIUM,NA 141 mmol/L (135-145)
[2023-06-26 22:21] LABS: INR 1.16 (1.00-1.24); PTT,PARTIAL THROMBOPLSTIN TIME 24.8 SECONDS (24.4-33.2)
[2023-06-26 22:24] LABS: BAND PERCENT MAN 5 % (0-6); LYMPHOCYTES PERCENT MAN 20 % (13-37); MONOCYTES PERCENT MAN 7 % (4-12); SEG NEUTROPHILS PERCENT MAN 68 % (46-82)
[2023-06-26 22:28] LABS: LACTIC ACID 3.7 mmol/L (0.4-2.0)
[2023-06-26 22:29] LABS: TROPONIN I 55.7 pg/mL (4.0-60.3)
[2023-06-26] MEDS ORDERED: Sodium Chloride 0.9% 1,000 ML IV SCH (22:30)
[2023-06-26] MEDS ORDERED: Sodium Chloride 0.9% 250 ML IV SCH (22:45)
[2023-06-26] MEDS: Piperacillin/Tazobactam 4.5 GM in Sodium Chloride 0.9% 100 ML IV ONE (22:50)
[2023-06-26] MEDS: Iopamidol 755 Mg/ML 100 ML Bottle IV SCH (23:28)
[2023-06-26] MEDS: Norepinephrine Bit/D5W Premix 4 MG in Premix Bag 1 BAG IV SCH (23:39)
[2023-06-26] MEDS: Norepinephrine Bit/D5W Premix 250 ML ONE (23:39)
[2023-06-26] MEDS ORDERED: Norepinephrine 4 MG in Dextrose 5% in Water 246 ML IV SCH ×2 (23:45)
[2023-06-26] MEDS: VANCOmycin 1 GM/200 ML 1 GM in Premix Bag 1 BAG IV ONE (23:45)
[2023-06-27] MEDS: Hydrocortisone Sodium Succinate 100 MG/2 ML SDV IVPUSH ONE (00:21)
[2023-06-27 01:05] VITALS: BP 75/48; PULSE 95
== END 2023-06-27 00:50 ==
LOC: FB.ED 21:46
DX: K92.2 Gastrointestinal hemorrhage, unspecified (principal); A41.9 Sepsis, unspecified organism; E78.5 Hyperlipidemia, unspecified; I10 Essential (primary) hypertension; D64.9 Anemia, unspecified; Z86.73 Personal history of transient ischemic attack (TIA), and cerebral infarction without residual deficits; E11.9 Type 2 diabetes mellitus without complications; E66.9 Obesity, unspecified; Z79.899 Other long term (current) drug therapy; Z79.02 Long term (current) use of antithrombotics/antiplatelets; Z88.8 Allergy status to other drugs, medicaments and biological substances; Z88.5 Allergy status to narcotic agent; Z68.31 Body mass index [BMI] 31.0-31.9, adult
CPT/HCPCS: 36415; 36430; 71045; 74177; 80053; 83605; 83880; 84484; 85025; 85610; 85730; 86850; 86900; 86901; 86920; 86922; 87040; 93005; 93010; 96365; 96367; 96368; 96375; 99285; C9113; J1720; J2543; J3370; J3490; P9016; Q9967

== ENCOUNTER 2023-09-12 08:23 | Inpatient (IN) | payer MEDICARE, BC ==
[2023-09-12] MEDS ORDERED: Sodium Chloride 0.9% 10 ML Syringe FLUSH PRN (10:37)
[2023-09-12 11:00] LABS: BASOPHILS ABSOLUTE AUTO 0.1 x10-3/uL (0.0-0.3); BASOPHILS PERCENT AUTO 0.6 % (0.3-3.8); EOSINOPHILS ABSOLUTE AUTO 0.2 x10-3/uL (0.0-0.6); HEMATOCRIT 36.8 % (38.3-50.1); HEMOGLOBIN 12.2 g/dL (12.9-17.7); LYMPHOCYTES ABSOLUTE AUTO 0.9 x10-3/uL (0.5-4.5); LYMPHOCYTES PERCENT AUTO 9.1 % (15.8-45.3); MEAN CORPUSCULAR HEMOGLOBIN 31.6 pg (27.0-33.3); MEAN CORPUSCULAR HGB CONC 33.1 g/dL (28.7-35.3); MEAN CORPUSCULAR VOLUME 95.3 fL (80.8-98.7); MEAN PLATELET VOLUME 7.4 fL (6.7-11.0); MONOCYTES ABSOLUTE AUTO 0.7 x10-3/uL (0.0-1.2); MONOCYTES PERCENT AUTO 7.6 % (5.5-15.2); NEUTROPHILS ABSOLUTE AUTO 7.9 x10-3/uL (1.7-6.9); NEUTROPHILS PERCENT AUTO 80.7 % (40.3-71.8); PLATELET COUNT,PLT 214 x10(3)uL (117-477); RED BLOOD CELL COUNT 3.87 x10(6)uL (3.90-5.90); RED CELL DISTRIBUTION WIDTH 14.5 % (12.4-15.0); WHITE BLOOD CELL COUNT,WBC 9.8 x10-3/uL (3.2-10.1)
[2023-09-12 11:08] LABS: BLOOD UREA NITROGEN,BUN 25 mg/dL (7-18); BUN/CREATININE RATIO 17.9 (9-20); CALCIUM 8.2 mg/dL (8.6-10.2); CARBON DIOXIDE,CO2 21 mmol/L (21-32); CHLORIDE,CL 107 mmol/L (100-110); CREATININE 1.4 mg/dL (0.70-1.30); ESTIMATED GFR 51 mL/min (>60); GLUCOSE RANDOM 107 mg/dL (80-116); POTASSIUM,K 4.6 mmol/L (3.5-5.3); SODIUM,NA 140 mmol/L (135-145)
[2023-09-12 11:14] LABS: A/G RATIO 1.1; ALANINE AMINOTRANSFERASE,ALT 17 U/L (12-36); ALBUMIN 3.7 g/dL (3.2-4.6); ALKALINE PHOSPHATASE 102 IU/L (56-112); ASPARTATE AMNIOTRANSFERASE,AST 23 IU/L (5-25); BILIRUBIN TOTAL 0.4 mg/dL (0.1-1.3); PROTEIN TOTAL,TP 7.1 g/dL (6.0-8.0)
[2023-09-12 11:21] LABS: TROPONIN I 18.9 pg/mL (4.0-60.3)
[2023-09-12] MEDS ORDERED: Acetaminophen 650 MG Supp RECTAL PRN (17:10)
[2023-09-12] MEDS ORDERED: Naloxone 0.4 MG/ML SDV IVPUSH PRN (17:10)
[2023-09-12] MEDS: Finasteride 5 MG Tab PO SCH (17:39)
[2023-09-12] MEDS: Gemfibrozil 600 MG Tab PO SCH (17:40)
[2023-09-12] MEDS: Magnesium Oxide 400 MG Tab PO SCH (17:40)
[2023-09-12] MEDS: Pantoprazole 40 MG Tab.CR PO SCH (17:40)
[2023-09-12] MEDS: Diltiazem IR 60 MG Tab PO SCH (21:14)
[2023-09-12] MEDS: Ferrous Sulfate 325 MG Tab PO SCH (21:14)
[2023-09-12] MEDS: Clotrimazole 1% Crm 15 GM Tube TOP SCH (21:16)
[2023-09-12] MEDS: Tamsulosin 0.4 MG Cap.ER PO SCH (21:19)
[2023-09-12] MEDS: Heparin Sodium 5,000 Units/ML Vial SUBCUT SCH (21:20)
[2023-09-12] MEDS: Gabapentin 100 MG Cap PO SCH (21:20)
[2023-09-12] MEDS: FLUTICASONE VILANTEROL INH SCH (21:21)
[2023-09-12] MEDS: Sulfamethoxazole/Trimethoprim 800-160 MG Tab PO SCH (21:22)
[2023-09-12] MEDS: Acetaminophen 325 MG Tab PO PRN (21:22)
[2023-09-12] MEDS: Simvastatin 10 MG Tab PO SCH (21:45)
[2023-09-13] MEDS: Simvastatin 20 MG Tab PO SCH (00:21)
[2023-09-13 06:34] LABS: BASOPHILS ABSOLUTE AUTO 0.1 x10-3/uL (0.0-0.3); BASOPHILS PERCENT AUTO 1.1 % (0.3-3.8); EOSINOPHILS ABSOLUTE AUTO 0.3 x10-3/uL (0.0-0.6); EOSINOPHILS PERCENT AUTO 3.9 % (0.1-6.8); HEMATOCRIT 33.6 % (38.3-50.1); HEMOGLOBIN 11.2 g/dL (12.9-17.7); LYMPHOCYTES ABSOLUTE AUTO 1.4 x10-3/uL (0.5-4.5); LYMPHOCYTES PERCENT AUTO 20.5 % (15.8-45.3); MEAN CORPUSCULAR HEMOGLOBIN 31.6 pg (27.0-33.3); MEAN CORPUSCULAR HGB CONC 33.3 g/dL (28.7-35.3); MEAN CORPUSCULAR VOLUME 94.8 fL (80.8-98.7); MEAN PLATELET VOLUME 7.5 fL (6.7-11.0); MONOCYTES ABSOLUTE AUTO 0.8 x10-3/uL (0.0-1.2); NEUTROPHILS ABSOLUTE AUTO 4.3 x10-3/uL (1.7-6.9); NEUTROPHILS PERCENT AUTO 63.5 % (40.3-71.8); PLATELET COUNT,PLT 189 x10(3)uL (117-477); RED BLOOD CELL COUNT 3.55 x10(6)uL (3.90-5.90); RED CELL DISTRIBUTION WIDTH 13.9 % (12.4-15.0); WHITE BLOOD CELL COUNT,WBC 6.8 x10-3/uL (3.2-10.1)
[2023-09-13 06:50] LABS: ALANINE AMINOTRANSFERASE,ALT 17 U/L (12-36); ALBUMIN 3.1 g/dL (3.2-4.6); ALKALINE PHOSPHATASE 91 IU/L (56-112); ASPARTATE AMNIOTRANSFERASE,AST 28 IU/L (5-25); BILIRUBIN TOTAL 0.5 mg/dL (0.1-1.3); BLOOD UREA NITROGEN,BUN 16 mg/dL (7-18); BUN/CREATININE RATIO 13.3 (9-20); CALCIUM 7.8 mg/dL (8.6-10.2); CARBON DIOXIDE,CO2 20 mmol/L (21-32); CHLORIDE,CL 107 mmol/L (100-110); CREATININE 1.2 mg/dL (0.70-1.30); EST CRCL DRUG DOSING (CG) 43.42 mL/min; ESTIMATED GFR 62 mL/min (>60); GLUCOSE RANDOM 90 mg/dL (80-116); POTASSIUM,K 4.3 mmol/L (3.5-5.3); PROTEIN TOTAL,TP 6.3 g/dL (6.0-8.0); SODIUM,NA 138 mmol/L (135-145)
[2023-09-13] MEDS: Polyethylene Glycol 3350 Powder 17 GM Packet PO SCH (08:48)
[2023-09-13] MEDS: Cholecalciferol (Vitamin D3) 25 MCG Tab PO SCH (08:49)
[2023-09-13] MEDS: Acetaminophen 650 MG Tab.ER PO PRN (09:06)
[2023-09-13] MEDS ORDERED: Sennosides 8.6 MG Tab PO PRN (09:52)
[2023-09-13] MEDS: Morphine 2 MG/ML SYRINGE IVPUSH PRN (13:03)
[2023-09-13] MEDS: Benzonatate 100 MG Cap PO PRN (21:46)
[2023-09-14 06:44] LABS: BASOPHILS ABSOLUTE AUTO 0.1 x10-3/uL (0.0-0.3); BASOPHILS PERCENT AUTO 0.9 % (0.3-3.8); EOSINOPHILS ABSOLUTE AUTO 0.5 x10-3/uL (0.0-0.6); EOSINOPHILS PERCENT AUTO 5.7 % (0.1-6.8); HEMATOCRIT 32.9 % (38.3-50.1); HEMOGLOBIN 11.2 g/dL (12.9-17.7); LYMPHOCYTES ABSOLUTE AUTO 1.3 x10-3/uL (0.5-4.5); LYMPHOCYTES PERCENT AUTO 13.8 % (15.8-45.3); MEAN CORPUSCULAR HGB CONC 33.9 g/dL (28.7-35.3); MEAN CORPUSCULAR VOLUME 94.4 fL (80.8-98.7); MEAN PLATELET VOLUME 7.5 fL (6.7-11.0); MONOCYTES ABSOLUTE AUTO 0.8 x10-3/uL (0.0-1.2); MONOCYTES PERCENT AUTO 8.3 % (5.5-15.2); NEUTROPHILS ABSOLUTE AUTO 6.5 x10-3/uL (1.7-6.9); NEUTROPHILS PERCENT AUTO 71.3 % (40.3-71.8); PLATELET COUNT,PLT 182 x10(3)uL (117-477); RED BLOOD CELL COUNT 3.49 x10(6)uL (3.90-5.90); RED CELL DISTRIBUTION WIDTH 13.8 % (12.4-15.0); WHITE BLOOD CELL COUNT,WBC 9.1 x10-3/uL (3.2-10.1)
[2023-09-14 06:49] LABS: BLOOD UREA NITROGEN,BUN 17 mg/dL (7-18); BUN/CREATININE RATIO 14.2 (9-20); CALCIUM 7.9 mg/dL (8.6-10.2); CARBON DIOXIDE,CO2 20 mmol/L (21-32); CHLORIDE,CL 105 mmol/L (100-110); CREATININE 1.2 mg/dL (0.70-1.30); EST CRCL DRUG DOSING (CG) 43.42 mL/min; ESTIMATED GFR 62 mL/min (>60); GLUCOSE RANDOM 93 mg/dL (80-116); POTASSIUM,K 4.8 mmol/L (3.5-5.3); SODIUM,NA 135 mmol/L (135-145)
[2023-09-14] MEDS: Sodium Chloride 0.9% 10 ML Syringe FLUSH PRN (18:43)
[2023-09-14] MEDS: Sodium Chloride 0.9% 500 ML IV ONE (18:47)
[2023-09-15 07:45] LABS: BASOPHILS ABSOLUTE AUTO 0.1 x10-3/uL (0.0-0.3); BASOPHILS PERCENT AUTO 0.9 % (0.3-3.8); EOSINOPHILS ABSOLUTE AUTO 0.5 x10-3/uL (0.0-0.6); EOSINOPHILS PERCENT AUTO 3.9 % (0.1-6.8); HEMATOCRIT 32.7 % (38.3-50.1); HEMOGLOBIN 10.9 g/dL (12.9-17.7); LYMPHOCYTES ABSOLUTE AUTO 1.2 x10-3/uL (0.5-4.5); LYMPHOCYTES PERCENT AUTO 9.8 % (15.8-45.3); MEAN CORPUSCULAR HEMOGLOBIN 31.5 pg (27.0-33.3); MEAN CORPUSCULAR HGB CONC 33.4 g/dL (28.7-35.3); MEAN CORPUSCULAR VOLUME 94.4 fL (80.8-98.7); MEAN PLATELET VOLUME 7.6 fL (6.7-11.0); MONOCYTES ABSOLUTE AUTO 1.1 x10-3/uL (0.0-1.2); MONOCYTES PERCENT AUTO 9.2 % (5.5-15.2); NEUTROPHILS ABSOLUTE AUTO 9.1 x10-3/uL (1.7-6.9); NEUTROPHILS PERCENT AUTO 76.2 % (40.3-71.8); PLATELET COUNT,PLT 191 x10(3)uL (117-477); RED BLOOD CELL COUNT 3.47 x10(6)uL (3.90-5.90); RED CELL DISTRIBUTION WIDTH 13.7 % (12.4-15.0); WHITE BLOOD CELL COUNT,WBC 11.9 x10-3/uL (3.2-10.1)
[2023-09-15 11:43] LABS: BLOOD UREA NITROGEN,BUN 17 mg/dL (7-18); BUN/CREATININE RATIO 12.1 (9-20); CARBON DIOXIDE,CO2 19 mmol/L (21-32); CHLORIDE,CL 104 mmol/L (100-110); CREATININE 1.4 mg/dL (0.70-1.30); EST CRCL DRUG DOSING (CG) 37.22 mL/min; ESTIMATED GFR 51 mL/min (>60); GLUCOSE RANDOM 96 mg/dL (80-116); POTASSIUM,K 5.1 mmol/L (3.5-5.3); SODIUM,NA 133 mmol/L (135-145)
[2023-09-15] MEDS: Acetaminophen 650 MG Tab.ER PO SCH (18:45)
[2023-09-15] MEDS: Lidocaine 4% 1 each Patch TOP SCH (19:31)
[2023-09-16 06:54] LABS: BASOPHILS ABSOLUTE AUTO 0.1 x10-3/uL (0.0-0.3); BASOPHILS PERCENT AUTO 1.4 % (0.3-3.8); EOSINOPHILS ABSOLUTE AUTO 0.9 x10-3/uL (0.0-0.6); EOSINOPHILS PERCENT AUTO 9.3 % (0.1-6.8); HEMATOCRIT 31.3 % (38.3-50.1); HEMOGLOBIN 10.7 g/dL (12.9-17.7); LYMPHOCYTES ABSOLUTE AUTO 1.2 x10-3/uL (0.5-4.5); LYMPHOCYTES PERCENT AUTO 12.3 % (15.8-45.3); MEAN CORPUSCULAR HEMOGLOBIN 32.2 pg (27.0-33.3); MEAN CORPUSCULAR HGB CONC 34.2 g/dL (28.7-35.3); MEAN CORPUSCULAR VOLUME 94.2 fL (80.8-98.7); MEAN PLATELET VOLUME 7.6 fL (6.7-11.0); MONOCYTES ABSOLUTE AUTO 0.8 x10-3/uL (0.0-1.2); MONOCYTES PERCENT AUTO 8.9 % (5.5-15.2); NEUTROPHILS ABSOLUTE AUTO 6.4 x10-3/uL (1.7-6.9); NEUTROPHILS PERCENT AUTO 68.1 % (40.3-71.8); PLATELET COUNT,PLT 195 x10(3)uL (117-477); RED BLOOD CELL COUNT 3.33 x10(6)uL (3.90-5.90); RED CELL DISTRIBUTION WIDTH 13.8 % (12.4-15.0); WHITE BLOOD CELL COUNT,WBC 9.4 x10-3/uL (3.2-10.1)
[2023-09-16 06:57] LABS: BLOOD UREA NITROGEN,BUN 20 mg/dL (7-18); BUN/CREATININE RATIO 13.3 (9-20); CARBON DIOXIDE,CO2 20 mmol/L (21-32); CHLORIDE,CL 105 mmol/L (100-110); CREATININE 1.5 mg/dL (0.70-1.30); EST CRCL DRUG DOSING (CG) 34.74 mL/min; ESTIMATED GFR 47 mL/min (>60); GLUCOSE RANDOM 92 mg/dL (80-116); POTASSIUM,K 4.6 mmol/L (3.5-5.3); SODIUM,NA 135 mmol/L (135-145)
[2023-09-16] MEDS: Melatonin 3 MG Tab PO PRN (22:59)
[2023-09-17 06:42] LABS: BLOOD UREA NITROGEN,BUN 18 mg/dL (7-18); BUN/CREATININE RATIO 13.8 (9-20); CALCIUM 8.4 mg/dL (8.6-10.2); CARBON DIOXIDE,CO2 19 mmol/L (21-32); CHLORIDE,CL 105 mmol/L (100-110); CREATININE 1.3 mg/dL (0.70-1.30); EST CRCL DRUG DOSING (CG) 40.08 mL/min; ESTIMATED GFR 56 mL/min (>60); GLUCOSE RANDOM 99 mg/dL (80-116); POTASSIUM,K 4.9 mmol/L (3.5-5.3); SODIUM,NA 136 mmol/L (135-145)
[2023-09-17 06:43] LABS: BASOPHILS ABSOLUTE AUTO 0.1 x10-3/uL (0.0-0.3); BASOPHILS PERCENT AUTO 0.8 % (0.3-3.8); EOSINOPHILS PERCENT AUTO 10.3 % (0.1-6.8); HEMATOCRIT 34.7 % (38.3-50.1); HEMOGLOBIN 11.6 g/dL (12.9-17.7); LYMPHOCYTES PERCENT AUTO 11.1 % (15.8-45.3); MEAN CORPUSCULAR HEMOGLOBIN 31.8 pg (27.0-33.3); MEAN CORPUSCULAR HGB CONC 33.6 g/dL (28.7-35.3); MEAN CORPUSCULAR VOLUME 94.8 fL (80.8-98.7); MEAN PLATELET VOLUME 7.6 fL (6.7-11.0); MONOCYTES ABSOLUTE AUTO 0.8 x10-3/uL (0.0-1.2); MONOCYTES PERCENT AUTO 8.1 % (5.5-15.2); NEUTROPHILS ABSOLUTE AUTO 6.6 x10-3/uL (1.7-6.9); NEUTROPHILS PERCENT AUTO 69.7 % (40.3-71.8); PLATELET COUNT,PLT 215 x10(3)uL (117-477); RED BLOOD CELL COUNT 3.65 x10(6)uL (3.90-5.90); RED CELL DISTRIBUTION WIDTH 13.8 % (12.4-15.0); WHITE BLOOD CELL COUNT,WBC 9.4 x10-3/uL (3.2-10.1)
[2023-09-18] MEDS: traMADol 50 MG Tab PO PRN (11:59)
[2023-09-19 06:43] LABS: BASOPHILS ABSOLUTE AUTO 0.1 x10-3/uL (0.0-0.3); BASOPHILS PERCENT AUTO 1.2 % (0.3-3.8); EOSINOPHILS ABSOLUTE AUTO 0.8 x10-3/uL (0.0-0.6); EOSINOPHILS PERCENT AUTO 11.3 % (0.1-6.8); HEMATOCRIT 32.1 % (38.3-50.1); HEMOGLOBIN 10.8 g/dL (12.9-17.7); LYMPHOCYTES ABSOLUTE AUTO 1.3 x10-3/uL (0.5-4.5); LYMPHOCYTES PERCENT AUTO 19.4 % (15.8-45.3); MEAN CORPUSCULAR HEMOGLOBIN 31.5 pg (27.0-33.3); MEAN CORPUSCULAR HGB CONC 33.6 g/dL (28.7-35.3); MEAN CORPUSCULAR VOLUME 93.7 fL (80.8-98.7); MEAN PLATELET VOLUME 7.4 fL (6.7-11.0); MONOCYTES ABSOLUTE AUTO 0.7 x10-3/uL (0.0-1.2); MONOCYTES PERCENT AUTO 10.3 % (5.5-15.2); NEUTROPHILS PERCENT AUTO 57.8 % (40.3-71.8); PLATELET COUNT,PLT 240 x10(3)uL (117-477); RED BLOOD CELL COUNT 3.42 x10(6)uL (3.90-5.90); RED CELL DISTRIBUTION WIDTH 13.9 % (12.4-15.0); WHITE BLOOD CELL COUNT,WBC 6.9 x10-3/uL (3.2-10.1)
[2023-09-19 06:46] LABS: BLOOD UREA NITROGEN,BUN 33 mg/dL (7-18); BUN/CREATININE RATIO 20.6 (9-20); CALCIUM 9.2 mg/dL (8.6-10.2); CARBON DIOXIDE,CO2 19 mmol/L (21-32); CHLORIDE,CL 105 mmol/L (100-110); CREATININE 1.6 mg/dL (0.70-1.30); EST CRCL DRUG DOSING (CG) 32.57 mL/min; ESTIMATED GFR 44 mL/min (>60); GLUCOSE RANDOM 133 mg/dL (80-116); POTASSIUM,K 4.9 mmol/L (3.5-5.3); SODIUM,NA 136 mmol/L (135-145)
[2023-09-19 08:28] VITALS: PULSE 76
[2023-09-19 08:29] VITALS: BP 94/46
== END 2023-09-19 10:03 | disposition swing bed (61) | DRG 536 ==
LOC: FB.ED 08:23 → FB.MS 13:00
PROVIDERS: ADMIT Internal Medicine; ATTEND Family Medicine
DX: S32.9XXA Fracture of unspecified parts of lumbosacral spine and pelvis, initial encounter for closed fracture (principal); S32.591A Other specified fracture of right pubis, initial encounter for closed fracture; K22.10 Ulcer of esophagus without bleeding; N17.9 Acute kidney failure, unspecified; D64.9 Anemia, unspecified; E87.1 Hypo-osmolality and hyponatremia; R06.89 Other abnormalities of breathing; H54.7 Unspecified visual loss; E11.9 Type 2 diabetes mellitus without complications; E78.00 Pure hypercholesterolemia, unspecified; M10.9 Gout, unspecified; Z68.31 Body mass index [BMI] 31.0-31.9, adult; W06.XXXA Fall from bed, initial encounter; E66.9 Obesity, unspecified; Z96.649 Presence of unspecified artificial hip joint; D63.1 Anemia in chronic kidney disease; N18.9 Chronic kidney disease, unspecified; I12.9 Hypertensive chronic kidney disease with stage 1 through stage 4 chronic kidney disease, or unspecified chronic kidney disease; E11.22 Type 2 diabetes mellitus with diabetic chronic kidney disease; W19.XXXA Unspecified fall, initial encounter; J44.9 Chronic obstructive pulmonary disease, unspecified; N40.0 Benign prostatic hyperplasia without lower urinary tract symptoms; E78.5 Hyperlipidemia, unspecified; M81.0 Age-related osteoporosis without current pathological fracture; I95.9 Hypotension, unspecified; Z88.8 Allergy status to other drugs, medicaments and biological substances; Z79.02 Long term (current) use of antithrombotics/antiplatelets; Z79.899 Other long term (current) drug therapy; Z79.51 Long term (current) use of inhaled steroids; Z87.81 Personal history of (healed) traumatic fracture; Z86.73 Personal history of transient ischemic attack (TIA), and cerebral infarction without residual deficits; Z68.30 Body mass index [BMI] 30.0-30.9, adult; Z98.49 Cataract extraction status, unspecified eye; Z98.890 Other specified postprocedural states; Z87.11 Personal history of peptic ulcer disease
CPT/HCPCS: 36415; 71045; 73501-RT; 80048; 80053; 82550; 83880; 84484; 85025; 93005; 93010; 94150; 97110-GO; 97110-GP; 97161-GP; 97165-GO; 97530-GO; 97530-GP; 97535-GO; 99222; 99232; 99238; 99285; A9270-GY; J1644; J2270; J3490; J7040

== ENCOUNTER 2023-09-19 10:02 | Inpatient (IN) | payer MEDICARE, BC ==
[2023-09-19] MEDS: Acetaminophen 325 MG Tab PO SCH (11:37)
[2023-09-19] MEDS: traMADol 50 MG Tab PO PRN (14:10)
[2023-09-19] MEDS: Pantoprazole 40 MG Tab.CR PO SCH (17:52)
[2023-09-19] MEDS: Gemfibrozil 600 MG Tab PO SCH (17:52)
[2023-09-19] MEDS: Magnesium Oxide 400 MG Tab PO SCH (17:53)
[2023-09-19] MEDS: ALBUTEROL INH SCH (20:48)
[2023-09-19] MEDS: traZODone 100 MG Tab PO SCH (20:48)
[2023-09-19] MEDS: Simvastatin 10 MG Tab PO SCH (20:48)
[2023-09-19] MEDS: IPRATROPIUM INH SCH (20:48)
[2023-09-19] MEDS: Gabapentin 100 MG Cap PO SCH (20:48)
[2023-09-19] MEDS: Tamsulosin 0.4 MG Cap.ER PO SCH (20:48)
[2023-09-20] MEDS: VILANTEROL INH SCH (08:36)
[2023-09-20] MEDS: Ferrous Sulfate 325 MG Tab PO SCH (08:36)
[2023-09-20] MEDS: FLUTICASONE INH SCH (08:36)
[2023-09-20] MEDS: Lidocaine 4% 1 each Patch TOP SCH (08:36)
[2023-09-20] MEDS: Cholecalciferol (Vitamin D3) 25 MCG Tab PO SCH (08:36)
[2023-09-20] MEDS: Finasteride 5 MG Tab PO SCH (08:37)
[2023-09-20] MEDS: Polyethylene Glycol 3350 Powder 17 GM Packet PO SCH (08:37)
[2023-09-21] MEDS: Acetaminophen 325 MG Tab PO SCH (17:46)
[2023-09-21] MEDS: traMADol 50 MG Tab PO SCH (20:07)
[2023-09-21] MEDS: Benzonatate 100 MG Cap PO PRN (22:24)
[2023-10-03] MEDS: Diltiazem IR 30 MG Tab PO SCH (14:14)
[2023-10-04] MEDS: Diltiazem IR 30 MG Tab PO ONE (09:55)
[2023-10-04 15:30] VITALS: BP 154/75; PULSE 86
[2023-10-04] MEDS ORDERED: Diltiazem IR 60 MG Tab PO SCH (21:00)
== END 2023-10-04 13:30 | disposition home health service (06) | DRG 560 ==
LOC: FB.MS 10:12
PROVIDERS: ADMIT Family Medicine; ATTEND Internal Medicine
DX: S32.501D Unspecified fracture of right pubis, subsequent encounter for fracture with routine healing (principal); K22.10 Ulcer of esophagus without bleeding; J44.9 Chronic obstructive pulmonary disease, unspecified; E78.5 Hyperlipidemia, unspecified; H54.7 Unspecified visual loss; E78.00 Pure hypercholesterolemia, unspecified; M10.9 Gout, unspecified; Z96.649 Presence of unspecified artificial hip joint; N18.30 Chronic kidney disease, stage 3 unspecified; I12.9 Hypertensive chronic kidney disease with stage 1 through stage 4 chronic kidney disease, or unspecified chronic kidney disease; M81.0 Age-related osteoporosis without current pathological fracture; N40.0 Benign prostatic hyperplasia without lower urinary tract symptoms; Z86.73 Personal history of transient ischemic attack (TIA), and cerebral infarction without residual deficits; Z87.11 Personal history of peptic ulcer disease; Z88.8 Allergy status to other drugs, medicaments and biological substances; Z79.899 Other long term (current) drug therapy; Z79.51 Long term (current) use of inhaled steroids; Z98.49 Cataract extraction status, unspecified eye; Z98.890 Other specified postprocedural states; W06.XXXD Fall from bed, subsequent encounter
CPT/HCPCS: 97110-GO; 97110-GP; 97116-GP; 97165-GO; 97530-GO; 97530-GP; 97535-GO; 99305; 99307; 99315; A9270-GY

== ENCOUNTER 2023-11-07 10:56 | Emergency (ER) | payer MEDICARE, BC ==
[2023-11-07 12:23] VITALS: BP 125/62; PULSE 83
== END 2023-11-07 11:46 | disposition home or self-care (01) ==
LOC: FB.ED 10:56
DX: T46.1X1A Poisoning by calcium-channel blockers, accidental (unintentional), initial encounter (principal); I10 Essential (primary) hypertension; E78.00 Pure hypercholesterolemia, unspecified; E11.9 Type 2 diabetes mellitus without complications; Z88.8 Allergy status to other drugs, medicaments and biological substances; Z79.899 Other long term (current) drug therapy
CPT/HCPCS: 99284

== ENCOUNTER 2024-11-26 10:35 | Emergency (ER) | payer MEDICARE, BC ==
[2024-11-26 10:45] VITALS: BP 122/66; PULSE 84
[2024-11-26 11:53] LABS: BASOPHILS ABSOLUTE AUTO 0.1 x10-3/uL (0.0-0.3); BASOPHILS PERCENT AUTO 0.8 % (0.3-3.8); EOSINOPHILS ABSOLUTE AUTO 0.3 x10-3/uL (0.0-0.6); EOSINOPHILS PERCENT AUTO 3.6 % (0.1-6.8); LYMPHOCYTES ABSOLUTE AUTO 1.7 x10-3/uL (0.5-4.5); LYMPHOCYTES PERCENT AUTO 19.0 % (15.8-45.3); MEAN PLATELET VOLUME 7.8 fL (6.7-11.0); MONOCYTES ABSOLUTE AUTO 0.8 x10-3/uL (0.0-1.2); MONOCYTES PERCENT AUTO 9.4 % (5.5-15.2); NEUTROPHILS ABSOLUTE AUTO 6.0 x10-3/uL (1.7-6.9); NEUTROPHILS PERCENT AUTO 67.2 % (40.3-71.8); PLATELET COUNT,PLT 167 x10(3)uL (117-477); RED BLOOD CELL COUNT 3.44 x10(6)uL (3.90-5.90); RED CELL DISTRIBUTION WIDTH 14.0 % (12.4-15.0); WHITE BLOOD CELL COUNT,WBC 9.0 x10-3/uL (3.2-10.1)
[2024-11-26 12:01] LABS: A/G RATIO 1.2; ALANINE AMINOTRANSFERASE,ALT 37 U/L (12-36); ASPARTATE AMNIOTRANSFERASE,AST 49 IU/L (5-25); BILIRUBIN TOTAL 0.4 mg/dL (0.1-1.3); BLOOD UREA NITROGEN,BUN 10 mg/dL (7-18); CARBON DIOXIDE,CO2 18 mmol/L (21-32); CHLORIDE,CL 110 mmol/L (100-110); CREATININE 1.0 mg/dL (0.70-1.30); ESTIMATED GFR 76 mL/min (>60); GLUCOSE RANDOM 102 mg/dL (80-116); PROTEIN TOTAL,TP 6.5 g/dL (6.0-8.0); SODIUM,NA 140 mmol/L (135-145)
[2024-11-26 12:08] LABS: POTASSIUM,K 2.8 mmol/L (3.5-5.3)
[2024-11-26] MEDS: Potassium Chloride 20 MEQ Tab.ER PO ONE (12:27)
[2024-11-26 12:31] LABS: GLUCOSE,URINE NORMAL (NORMAL); OCCULT BLOOD,URINE LARGE (NEGATIVE)
[2024-11-26 12:43] LABS: APPEARANCE,URINE TURBID (CLEAR)
[2024-11-26 12:44] LABS: EPITHELIAL CELLS,URINE FEW
== END 2024-11-26 14:30 | disposition home or self-care (01) ==
LOC: FB.ED 10:35
DX: K52.9 Noninfective gastroenteritis and colitis, unspecified (principal); E87.6 Hypokalemia; E83.42 Hypomagnesemia; T83.511A Infection and inflammatory reaction due to indwelling urethral catheter, initial encounter; I10 Essential (primary) hypertension; E78.00 Pure hypercholesterolemia, unspecified; E11.9 Type 2 diabetes mellitus without complications; Z86.73 Personal history of transient ischemic attack (TIA), and cerebral infarction without residual deficits; Z88.5 Allergy status to narcotic agent; Z88.8 Allergy status to other drugs, medicaments and biological substances; Z79.899 Other long term (current) drug therapy; Z87.891 Personal history of nicotine dependence
CPT/HCPCS: 36415; 80053; 81001; 83605; 83735; 85025; 86140; 87086; 87088; 87186; 87230; 99284; A9270

== ENCOUNTER 2024-11-30 03:00 | Emergency (ER) | payer MEDICARE, BC ==
[2024-11-30] MEDS: Sodium Chloride 0.9% 10 ML Syringe FLUSH PRN (03:30)
[2024-11-30 03:57] LABS: BASOPHILS ABSOLUTE AUTO 0.0 x10-3/uL (0.0-0.3); BASOPHILS PERCENT AUTO 0.6 % (0.3-3.8); EOSINOPHILS ABSOLUTE AUTO 0.4 x10-3/uL (0.0-0.6); EOSINOPHILS PERCENT AUTO 4.7 % (0.1-6.8); LYMPHOCYTES ABSOLUTE AUTO 1.3 x10-3/uL (0.5-4.5); LYMPHOCYTES PERCENT AUTO 16.1 % (15.8-45.3); MEAN PLATELET VOLUME 8.1 fL (6.7-11.0); MONOCYTES ABSOLUTE AUTO 0.8 x10-3/uL (0.0-1.2); MONOCYTES PERCENT AUTO 10.5 % (5.5-15.2); NEUTROPHILS ABSOLUTE AUTO 5.4 x10-3/uL (1.7-6.9); NEUTROPHILS PERCENT AUTO 68.1 % (40.3-71.8); PLATELET COUNT,PLT 155 x10(3)uL (117-477); RED BLOOD CELL COUNT 3.26 x10(6)uL (3.90-5.90); RED CELL DISTRIBUTION WIDTH 14.1 % (12.4-15.0); WHITE BLOOD CELL COUNT,WBC 8.0 x10-3/uL (3.2-10.1)
[2024-11-30 04:00] LABS: GLUCOSE,URINE NORMAL (NORMAL); OCCULT BLOOD,URINE NEGATIVE (NEGATIVE)
[2024-11-30 04:01] LABS: BLOOD UREA NITROGEN,BUN 10 mg/dL (7-18); CARBON DIOXIDE,CO2 17 mmol/L (21-32); CHLORIDE,CL 106 mmol/L (100-110); CREATININE 1.1 mg/dL (0.70-1.30); EST CRCL DRUG DOSING (CG) 50.08 mL/min; ESTIMATED GFR 68 mL/min (>60); GLUCOSE RANDOM 96 mg/dL (80-116); POTASSIUM,K 4.3 mmol/L (3.5-5.3); SODIUM,NA 135 mmol/L (135-145)
[2024-11-30 04:04] LABS: APPEARANCE,URINE SLIGHTLY CLOUDY (CLEAR); FINE GRANULAR CASTS,URINE OCCASIONAL (NS); SQUAMOUS EPITHELIAL CELLS,UR FEW (NS,R,O)
[2024-11-30 04:07] LABS: A/G RATIO 1.0; ALANINE AMINOTRANSFERASE,ALT 28 U/L (12-36); ASPARTATE AMNIOTRANSFERASE,AST 31 IU/L (5-25); BILIRUBIN TOTAL 0.4 mg/dL (0.1-1.3); PROTEIN TOTAL,TP 6.0 g/dL (6.0-8.0)
[2024-11-30 04:11] LABS: LACTIC ACID 3.2 mmol/L (0.4-2.0)
[2024-11-30] MEDS: Magnesium Sulfate 2 GM/50 mL 2 GM in Premix Bag 1 BAG IV ONE (04:33)
[2024-11-30 05:11] VITALS: BP 122/58; PULSE 71
== END 2024-11-30 06:00 ==
LOC: FB.ED 03:00 → SUPCPDRO 03:00 → FB.ED 06:00
DX: D64.9 Anemia, unspecified (principal); N39.0 Urinary tract infection, site not specified; E86.0 Dehydration; E83.42 Hypomagnesemia; R19.7 Diarrhea, unspecified; I10 Essential (primary) hypertension; E11.9 Type 2 diabetes mellitus without complications; E78.00 Pure hypercholesterolemia, unspecified; Z79.899 Other long term (current) drug therapy; Z88.5 Allergy status to narcotic agent; Z88.8 Allergy status to other drugs, medicaments and biological substances; W18.2XXA Fall in (into) shower or empty bathtub, initial encounter
CPT/HCPCS: 36415; 80053; 81001; 83605; 83735; 85025; 86140; 96361; 96365; 99285; J3475; J7030